=== PATIENT | male | born 1955 | race Caucasian/White ===

== ENCOUNTER 2024-01-26 15:36 | Inpatient (IN) | payer MEDICARE, SELFPAY ==
[2024-01-26] VITALS (7 sets, daily range): BP systolic 102–160; BP diastolic 71–92; BMI 30.4; BMI 30.3
--- NOTE | 2024-01-26 13:17 | ED.GENMED ---
History of Present Illness
General
Chief Complaint: Breathing Problem
Time Seen by Provider: 01/26/24 13:02
History of Present Illness
History of Present Illness:
68-year-old male with history of COPD on chronic supplemental oxygen, mesothelioma, restrictive lung disease, and bul-xquxafy-pibjkcxkn diabetes presents to the emergency department for evaluation of increasing shortness of breath. He states to me
this has been gradually worsening over the past 6 months, presented to his product consultant today where he was noted to be profoundly hypoxic on his normal supplemental oxygen and EMS was called. On arrival the patient is requiring 15 L nonrebreather
to maintain saturations greater than 95%. He denies chest pain. States that the last time he had similar symptoms he required thoracentesis for pleural effusion on the left. Denies any fevers or chills. Does report increased leg swelling in the
legs recently. Denies any known weight gain.
Past History
Social History
Tobacco: 2nd hand smoke exposure
Alcohol: None
Drug: None
Living: with family
Review of Systems
Review of Systems
Allergies reviewed?: Yes
All Other Systems: ROS reviewed and negative except as documented in HPI and ROS
Phy Exam
Physical Exam
Physical Exam:
GEN: Chronically ill-appearing, in acute respiratory distress
Eyes: PERRLA, EOMs intact, no scleral icterus
HENT: NCAT, oral mucosa moist
Lungs: Tachypnea, grossly diminished lung sounds particularly in the bases
Cardiac: RRR, no M/R/G, 2+ pitting edema bilateral lower extremities; radial pulses 2+ bilat
Neuro: AO x 3
MSK: No gross deformity or ecchymosis. No edema. No digital clubbing
Skin: No rashes, petechiae. Normal color, no pallor or jaundice.
Psych: Calm, cooperative, proper hygiene
Scores
Heart Failure Risk
Heart Failure Risk Score: Not Applicable
Course
Orders/Labs/Results
Orders:
Orders
01/26/24 13:02
EKG [Electrocardiogram (*1)] Urgent
Reason for Study: Shortness of Breath
01/26/24 13:03
EKG- Treatment ONCE
EKG- Treatment ONCE
CR Chest Portable - 1 View Urgent
Comment:
Reason For Exam: sob
Reason Study Needs to be Portable: Unable to Transport
01/26/24 13:07
Complete Blood Count/With Diff Urgent
Comprehensive Metabolic Panel Urgent
NT-proBNP Urgent
PTT Urgent
Prothrombin Time Urgent
Troponin I Urgent
01/26/24 14:18
Venous Blood Gas Urgent
%Oxygen/Room Air: 10
Comment: mid flow
01/26/24 14:29
Furosemide [Lasix] 40 mg IV NOW STA
01/26/24 15:03
Admit/Transfer Patient As Directed
Co-Sign Provider:
Level of Care: Inpatient admission
Assign to:: IMU- Intermediate Care
Physician / Group: Robinson Corbett
Diagnosis: suspected HF, hypoxic resp failure
Reason for Hospitalization: suspected HF, hypoxic resp failure
Expected length of stay greater than two midnights?: Yes
ELOS- Estimated Length of Stay in days: 3
I certify the patient meets the requirements for IP care: Yes
01/26/24 15:05
Code Status As Directed
Resuscitation Status: Full Code
01/26/24 16:29
Acetaminophen [Tylenol] 650 mg PO Q4HPRN PRN
Ipratropium/Albuterol Sulfate [Duoneb] 3 ml INH R Q4HPRN PRN
Methylphenidate HCl [Ritalin] 15 mg PO BIDPRN PRN
Ondansetron Injectable [Zofran] 4 mg IV Q6HPRN PRN
Oxycodone [Roxicodone] 5 mg PO Q8HPRN PRN
01/26/24 16:29
Echo 2D MMode Color/Doppler Routine
Reason for Study: HF
CT Chest W/o Iv Contrast Routine
Comment:
Reason For Exam: mesothelioma, hypoxia
PULMONARY CONSULT Routine
Consulting Provider: Ovidio Marrero
Was physician already notified: Yes
Reason for consult: mesothelioma, hypoxic resp failure
Activity As Directed
Activity Level: With Assistance
Vital Signs As Directed
Frequency: Per unit guidelines
O2 Therapy [RESP] Routine
Titrate/Wean O2 to maintain O2 sat greater than (%): 88
DX Deep Vein Thrombosis Video Routine
01/26/24 17:42
Troponin I Q6H
01/26/24 20:00
Carvedilol [Coreg] 12.5 mg PO BID
Heparin 5,000 units SC Q12
Pregabalin [Lyrica] 50 mg PO BID
01/27/24 01:00
Troponin I Q6H
01/27/24 06:00
Basic Metabolic Panel IN AM
Complete Blood Count/No Diff IN AM
01/27/24 08:00
Atorvastatin [Lipitor] 80 mg PO DAILY
Budesonide/Formoterol 80/4.5 [Symbicort 80/4.5 Mcg Inhaler] 2 puff INH R BID
Fenofibrate 145 [Tricor] 145 mg PO DAILY
Finasteride [Proscar] 5 mg PO DAILY
Furosemide [Lasix] 40 mg IV DAILY
Losartan [Cozaar] 100 mg PO DAILY
Tamsulosin [Flomax] 0.8 mg PO DAILY
01/28/24 06:00
Basic Metabolic Panel IN AM
Complete Blood Count/No Diff IN AM
01/29/24 06:00
Basic Metabolic Panel IN AM
Complete Blood Count/No Diff IN AM
Abnormal Lab Results
01/26/24 01/26/24
13:07 14:18
RBC 3.35 L 10^6/uL
(4.70-6.10)
Hgb 10.0 L g/dL
(13.0-18.0)
Hct 31.5 L %
(39.0-52.0)
MCHC 31.7 L g/dL
(33.0-37.0)
RDW 20.3 H %
(11.5-14.5)
Abs Immat Gran (auto) 0.1 H 10^3/uL
(0-0.05)
Absolute Lymphs (auto) 0.6 L 10^3/uL
(1.2-3.4)
Immature Gran % 1.0 H %
(0-0.5)
Lymphocytes % 11.2 L %
(20.5-51.1)
Monocytes % 12.1 H %
(1.7-9.3)
PT 14.9 H Sec
(11.4-14.6)
VBG pCO2 60 H mmHg
(35-48)
VBG HCO3 31.6 H mmol/L
(22-27)
Chloride 108 H mmol/L
(98-107)
BUN 24 H mg/dl
(9-20)
Creatinine 1.4 H mg/dL
(0.7-1.3)
Glucose 112 H mg/dl
(70-99)
Troponin I 0.082 H* ng/ml
Albumin 3.3 L g/dl
(3.5-5.0)
01/26/24 13:07
01/26/24 13:07
Vital Signs
Initial and Last Documented VS:
Initial Vital Signs
Temp Pulse Resp BP Pulse Ox
97.6 F 80 27 154/90 100
01/26/24 13:08 01/26/24 13:08 01/26/24 13:08 01/26/24 13:08 01/26/24 13:08
Last Documented Vital Signs
Temp Pulse Resp BP Pulse Ox
98.3 F 85 19 129/73 100
01/26/24 20:50 01/26/24 20:30 01/26/24 20:30 01/26/24 17:00 01/26/24 20:30
MDM/Problems Addressed
MDM/Problems Addressed:
68-year-old male presents with acute respiratory failure. He does have chronic underlying COPD requiring supplemental oxygen however is requiring upwards of 15 L nonrebreather to maintain saturations in the emergency department. Clinically appears
volume overloaded with lower extremity edema and diminished bibasilar breath sounds. Chest x-ray independently interpreted by me reveals bilateral pulmonary edema with a likely loculated right pleural effusion. Patient was maintained on mid flow
nasal cannula with good saturation results. Given the chronicity of his complaint coupled with lack of fever, or leukocytosis do not feel there is any indication for antibiotics at this time. Will admit to the hospitalist service for further
management of suspected acute CHF
*Critical Care Note
Total Time (30-74mins, 75-104mins- exclusive of procedures): 50-minute
comment:
Critical care time: 50 minutes
Critical care time was exclusive of: Separately billable procedures, treating other patients, and teaching time
Critical care was necessary to treat or prevent imminent or life-threatening deterioration of the following conditions: Acute respiratory failure with hypoxia
Critical care time spent personally by me on the following activities:
[x] Review of old charts
[x] Obtaining history from patient or surrogate
[x] Ordering and review of the laboratory studies
[x] Ordering and review of radiographic studies
[x] Ordering and performing treatments and interventions
[x] Patient patient's response to treatment
[x] Development of treatment plan with patient or surrogate
ED Attending Note
-
Portions of this chart may have been created with voice recognition software.� Occasional wrong word or��sound alike� substitutions may have occurred due to the inherent limitations of voice recognition software.
Discharge Plan
Departure
Patient Disposition: Admit
Date of Disposition: 01/26/24
Time of Disposition: 14:29
Admit to: Telemetry
Presentation/result/management discussed w/ accepting MD/DO: Hospitalist
Discharge Problem:
Acute heart failure with preserved ejection fraction (HFpEF), Acute hypoxic respiratory failure
Interventions
Interventions:
*Risk Screen - Suicide Last Done: 01/26/24 13:08
*General Assessment Last Done: 01/26/24 13:08
*Neglect/Abuse Screening Last Done: 01/26/24 13:08
ED- Fall Risk Assessment Last Done: 01/26/24 13:08
*ED COVID-19 Vaccine History Last Done: 01/26/24 13:08
*Nursing Disposition Last Done: 01/26/24 19:14
ED- Cardiac Assessment Last Done: 01/26/24 13:08
ED- Pulmonary Assessment Last Done: 01/26/24 14:12
Discharge Date and Time
Discharge Date/Time: 01/26/24 20:36
[2024-01-26 13:25] LABS: % Basophils 0.4 % (0-2); % Eosinophils 0.4 % (0-6); % Lymphocytes 11.2 % (20.5-51.1); % Monocytes 12.1 % (1.7-9.3); % Neutrophils 74.9 % (42.2-75.2); Absolute Immature Granulocytes 0.1 10^3/uL (0-0.05); Absolute Lymphocytes 0.6 10^3/uL (1.2-3.4); Absolute Monocytes 0.6 10^3/uL (0.1-0.6); Absolute Neutrophils 3.8 10^3/uL (1.4-6.5); Hematocrit 31.5 % (39.0-52.0); Mean Corp Hgb Conc. 31.7 g/dL (33.0-37.0); Mean Corpuscular Hgb 29.9 pg (27.0-31.0); Nucleated Red Blood Cells % 0 % (-); Platelet Count 333 10^3/uL (130-400); Red Blood Cell Count 3.35 10^6/uL (4.70-6.10); Red Cell Dist. Width 20.3 % (11.5-14.5); White Blood Cell Count 5.1 10^3/uL (4.8-10.8)
--- NOTE | 2024-01-26 13:25 | EDRN ---
respiratory contacted to perform ABG per providers orders
[2024-01-26 13:35] LABS: INR 1.17; PT 14.9 Sec (11.4-14.6)
[2024-01-26 13:36] LABS: APTT 33.4 Sec (23.4-35.0)
[2024-01-26 13:40] LABS: ALT (SGPT) 15 U/L (0-50); AST (SGOT) 37 U/L (17-59); Albumin 3.3 g/dl (3.5-5.0); Alkaline Phosphatase 77 U/L (38-126); Blood Urea Nitrogen 24 mg/dl (9-20); Carbon Dioxide 30 mmol/L (22-30); Chloride 108 mmol/L (98-107); Estimated Creatinine Clearance 54 ml/min; Glucose 112 mg/dl (70-99); Potassium 4.1 mmol/L (3.5-5.1); Sodium 140 mmol/L (135-145); Total Bilirubin 0.3 mg/dl (0.2-1.3); Total Protein 7.4 g/dl (6.3-8.2); eGFR 54.41
--- NOTE | 2024-01-26 13:44 | EDRN ---
the pt is resting in stretcher in the lowest position, side rails up x2, call poon within reach, HOB elevated, NST in the 80's, last BP 154/90 (110), the pt is currently still on 15L non rebreather Sp02 100%, RR 18, no c/o pain, no c/o chest pain,
the pt has no c/o SOB currently, the registrar called this RN and asked this RN if family could come back to the pts room, the pts family is currently at the pts bedside, awaiting for respiratory to come to the pts bedside to obtain ABG, will
continue to monitor the pt closely
--- NOTE | 2024-01-26 14:04 | EDRN ---
respiratory at the pts bedside obtaining ABG
[2024-01-26 14:08] LABS: NT-proBNP 1710 pg/ml; Troponin I 0.082 ng/ml
--- NOTE | 2024-01-26 14:10 | EDRN ---
troponin came back elevated, this RN notified Gil REYES
--- NOTE | 2024-01-26 14:11 | EDRN ---
per provider respiratory at the pts bedside placing the pt on midflow
--- NOTE | 2024-01-26 14:21 | EDRN ---
the pt was placed on 10L Midflow, the pts sp02 has remained 95-98%, VBG obtained due to respiratory not being able to obtain ABG
[2024-01-26 14:26] LABS: Venous Blood Gas B.E. 4.6 mmol/L (-4 to +4); Venous Blood Gas HCO3 31.6 mmol/L (22-27); Venous Blood Gas O2 Sat % 77.1 %; Venous Blood Gas pCO2 60 mmHg (35-48); Venous Blood Gas pH 7.33 (7.32-7.43); Venous Blood Gas pO2 50 mmHg (30-50)
[2024-01-26] MEDS: LASIX 40 MG IV (14:32)
--- NOTE | 2024-01-26 14:45 | EDRN ---
the pt is currently still on 10L Midflow and Sp02 is currently 99%, no c/o SOB, no c/o chest pain, VS WNL, will continue to monitor the pt closely
--- NOTE | 2024-01-26 15:15 | HPS.HSE ---
Family Physician
-
Family Physician: Omar Banks
Chief Complaint
-
shortness breath
History of Present Illness
Patient is 68-year-old male with past medical history of mesothelioma on chemotherapy at [facility], history of CKD stage IIIa, unz-fawrsly-xabsekmrl diabetes mellitus, COPD, former tobacco use, history of pneumothorax, restrictive lung disease,
hyperlipidemia, obesity came to ER for having worsening shortness of breath for last 6 months. Patient have diagnosis of mesothelioma and has been undergoing chemotherapy, last known was 6 weeks back and was due for next round this week.
Unfortunately with ongoing pulmonary symptoms patient had to come to ER.
In ER patient was noted to be hypoxic requiring up to 14-15 L oxygen through mid flow. Patient does use oxygen at baseline and 3 L.
Patient have noticed worsening lower extremity edema and weight gain. No orthopnea. At this point patient having minimal activity causing shortness of breath denies of having any cough or fever episodes
Patient denies of having any other ongoing problems of chest pain/palpitation/dizziness/abdominal pain/nausea/vomiting/diarrhea.
Medical History
Past Medical History
Past Medical History: Reports Other
Additional Past Medical History:
history of mesothelioma on chemotherapy at [facility], history of CKD stage IIIa, tvh-kdxlhwx-pfeteuujv diabetes mellitus, COPD, former tobacco use, history of pneumothorax, restrictive lung disease, hyperlipidemia, obesity
Past Surgical History: Reports Other
Social History
Tobacco: Former Smoker
Alcohol: None
Drug: None
Personal:
Family History
Family History: Not pertinent
Allergies / Home Medications
Allergies reflects when Allergies were last updated in [facility].
Home Medications with original date entered in [facility]
Allergy/Medication List:
Allergies
Allergy/AdvReac Type Severity Reaction Status Date / Time
No Known Allergies Allergy Verified 04/05/23 10:34
Home Medications
atorvastatin 80 mg tablet 80 mg PO DAILY High cholesterol 02/12/20
dapagliflozin propanediol 10 mg tablet (Farxiga) 10 mg PO DAILY Diabetes 05/05/22
fenofibric acid (choline) 135 mg capsule,delayed release 135 mg PO DAILY High cholesterol 05/05/22
finasteride 5 mg tablet 5 mg PO DAILY Urinary issue 05/05/22
tamsulosin 0.4 mg capsule 0.8 mg PO DAILY Urinary issue 05/05/22
albuterol sulfate 90 mcg/actuation aerosol inhaler 2 puff inhalation R Q6HPRN PRN sob 04/05/23
methylphenidate HCl 10 mg tablet 15 mg PO BIDPRN PRN adhd 04/05/23
rsvbcmd-luwttzsgqfglq-btrdjbfd 250 mg-250 mg-65 mg tablet (Excedrin Extra Strength) 1 tab PO DAILYPRN PRN headaches 01/26/24
carvedilol 12.5 mg tablet (Coreg) 12.5 mg PO BID 01/26/24
fluticasone fur. 100 mcg-umeclid 62.5 mcg-vilant 25 mcg inhalat.powder (Trelegy Ellipta) 1 inh inhalation R DAILY 01/26/24
losartan 100 mg tablet 100 mg PO DAILY 01/26/24
naproxen sodium 220 mg tablet (Aleve) 220 mg PO BIDPRN PRN mild pain 01/26/24
oxycodone 5 mg tablet 5 mg PO BIDPRN PRN severe pain 01/26/24
pregabalin 50 mg capsule (Lyrica) 50 mg PO BID 01/26/24
Review of Systems
-
A 12 point ROS was completed and negative except as noted: Yes
Physical Exam
Vital Signs
Vital Signs
Temp Pulse Resp BP Pulse Ox
97.6 F 89 20 145/84 99
01/26/24 13:08 01/26/24 14:32 01/26/24 14:30 01/26/24 14:32 01/26/24 14:30
Physical Exam
General: No Apparent Distress and Obese
HEENT: Atraumatic and Oxygen
Respiratory: Rhonchi; No Wheezes
Cardiac: S1/S2 and Regular Rhythm; No Murmur or Rub
GI: Soft, Non Tender and Non Distended
Rectal: Deferred by Provider
Musculoskeletal: No Cyanosis and No Edema
Skin: Rash
Neuro: Awake, Alert, Oriented and Nonfocal/grossly intact
Psych: Calm
Laboratory Results
-
01/26/24 13:07
01/26/24 13:07
Laboratory Results
PT 14.9 Sec (11.4-14.6) H 01/26/24 13:07
INR 1.17 01/26/24 13:07
APTT 33.4 Sec (23.4-35.0) 01/26/24 13:07
pH Cancelled 01/26/24 14:06
pCO2 Cancelled 01/26/24 14:06
pO2 Cancelled 01/26/24 14:06
HCO3 Cancelled 01/26/24 14:06
Total Bilirubin 0.3 mg/dl (0.2-1.3) 01/26/24 13:07
AST 37 U/L (17-59) 01/26/24 13:07
ALT 15 U/L (0-50) 01/26/24 13:07
Alkaline Phosphatase 77 U/L (38-126) 01/26/24 13:07
Troponin I 0.082 ng/ml H* 01/26/24 13:07
Data Reviewed
-
Lab Data: Labs Reviewed by me, Discussed with Patient and Discussed with Family
Impression/Plan
-
1. Acute on chronic hypoxic resp failure
Suspected new HF
-Patient comes in with progressive shortness of breath, slowly worsening over 6 months per patient
-CXR showing moderate CHF. Moderate right pleural effusion.
-Chest x-ray also showing bilateral infiltrates and question of superimposed pneumonia, although patient does not have any cough/fever. Monitor off of antibiotics
-ProBNP elevated 1700. in April 13 was 500, suspecting component of new heart failure. Echocardiogram ordered
-Patient got IV Lasix 40 mg today, maintain on 40 mg daily moving forward
2. Right mod pleural effusion
-Chest x-ray questioning moderate right-sided pleural effusion.
-With underlying mesothelioma unable to differentiate. CT chest w/o contrast ordered.
-Pulmonology asked to follow along as well
3. Troponin elevation
-minimal with hypoxia, f/u ordered
-EKG did not show any ST/T seg changes
4. Mesothelioma
- f/u with [facility] oncology. due for next round chemo today per family
5. CKDIIIA
- cr close to baseline. monitor post Lasix.
Normocytic anemia
hoo-zqwvubv-wtibqkbbn diabetes mellitus
COPD
former tobacco use
history of pneumothorax
restrictive lung disease
hyperlipidemia
obesity
DVT PPX - heparin subq
Full code -confirmed with patient
Total time spent : 78 mins
I personally saw and examined the patient.
I have reviewed all diagnostic interpretations and treatment plans as written.
Time includes patient management by me, time spent at the patients bedside, time to review lab and imaging results, discussing patient care, documentation in the medical record, and time spent with the family or caregiver and discussing care plan
with RN/Consultants.
--- NOTE | 2024-01-26 16:09 | EDRN ---
the pt is resting in stretcher in the lowest position, side rails up x1, call poon within reach, HOB elevated, NSR in the 80's, last BP 102/71 (82), the pt is currently still on 10L Midflow and Sp02 99%, no c/o chest pain, no c/o SOB, will continue
to monitor the pt closely
--- NOTE | 2024-01-26 16:29 | EDRN ---
this RN processed orders, pharmacy called and notified
--- NOTE | 2024-01-26 16:33 | EDRN ---
the pt pressed the call poon and this RN entered the pts room, the pt stated to this RN that he was hungry, this RN processed diet order and this RN provided the pt with a menu
--- NOTE | 2024-01-26 16:35 | EDRN ---
the pt has been able to stand at the side of the bed to urinate in urinal without issues with this RN present
[2024-01-26 17:40] LABS: Glucose - Point of Care 105 mg/dl (70-99)
--- NOTE | 2024-01-26 17:41 | EDRN ---
this RN entered the pts room and noticed that the pt had a soda and milk shake that his brought him, this RN checked the pts blood sugar and the blood sugar was 105, glucometer cleaned per hospital protocol, the pt did not get insulin due to
protocol, the pt stated to this RN, 'I don't check my sugars like that and i don't take insulin at home or oral diabetic medication anymore, can you tell the doctor that', this RN notified provider, the pt is resting in stretcher in the lowest
position, side rails up x2, call poon within reach, HOB elevated, NSR in the 90's, the pt is currently still on 10L Midflow and Sp02 97%, no c/o chest pain, no c/o SOB, will continue to monitor the pt closely
--- NOTE | 2024-01-26 18:00 | EDRN ---
this RN assisted the pt with standing at the side of the bed to urinate and this RN noticed that the pt had redness on the left buttock and a decub on the right buttock, when asked about it the pt stated that he has had it for a while, this RN will
notify provider
[2024-01-26 18:17] LABS: Troponin I 0.107 ng/ml
--- NOTE | 2024-01-26 18:27 | EDRN ---
second troponin came back elevated, this RN notified provider
[2024-01-26] MEDS: LYRICA 50 MG PO (21:26)
[2024-01-26] MEDS: HEPARIN 5000 UNITS SC (21:27)
[2024-01-26] MEDS: COREG 12.5 MG PO (21:27)
[2024-01-26 21:41] LABS: Glucose - Point of Care 184 mg/dl (70-99)
[2024-01-26] MEDS: DUONEB 3 ML INH (23:03)
--- NOTE | 2024-01-26 23:12 | PTCARENOTE ---
Pt admitted around 2044. Family at bedside. pt aaox3, but seems forgetful & confused at times. SR on monitor, remains on 10LMF. able to stand and pivot. Reports he was using a WC at home d/t weakness & SOB. Stage 3 on his R buttocks, cleaned &
dressing applied. Pt c/o right pleural pain, oxy given. pt up in chair to help relieve the pain, stated its the same pain he endures at home& oxy does help. BEd & chair alarm on. call poon in reach. will monitor.
[2024-01-26] MEDS: ROXICODONE 5 MG PO (23:17)
--- NOTE | 2024-01-26 23:41 | PTCARENOTE ---
Patients daughter, Echo, expressed how she is worried about her father and his living conditions. States he is very forgetful & is worried he is not taking his medications the way he is supposed to, if not at all. She stated she does not know
what to do about it. Patient lives with his which is the daughters step mom. This nurse provided comfort to the daughter and stated that case management will be around tomorrow and they can discuss this further. Added daughter to emergency
contacts.
Daughter Echo [phone]
[2024-01-27] VITALS (19 sets, daily range): BP systolic 95–144; BP diastolic 49–86; BMI 30.1
[2024-01-27] MEDS: MORPHINE SULFATE 1 MG IV ×2 (00:46→23:50)
[2024-01-27 01:35] LABS: Troponin I 0.081 ng/ml
[2024-01-27 05:40] LABS: Hematocrit 30.5 % (39.0-52.0); Hemoglobin 9.5 g/dL (13.0-18.0); Mean Corp Hgb Conc. 31.1 g/dL (33.0-37.0); Mean Corpuscular Hgb 29.3 pg (27.0-31.0); Mean Corpuscular Volume 94.1 fL (80.0-94.0); Mean Platelet Volume 10.1 fL (7.4-10.4); Platelet Count 308 10^3/uL (130-400); Red Blood Cell Count 3.24 10^6/uL (4.70-6.10); Red Cell Dist. Width 19.9 % (11.5-14.5); White Blood Cell Count 4.9 10^3/uL (4.8-10.8)
[2024-01-27 06:04] LABS: Blood Urea Nitrogen 26 mg/dl (9-20); Calcium 9.1 mg/dl (8.4-10.2); Carbon Dioxide 35 mmol/L (22-30); Chloride 102 mmol/L (98-107); Estimated Creatinine Clearance 54 ml/min; Glucose 114 mg/dl (70-99); Potassium 4.4 mmol/L (3.5-5.1); Sodium 142 mmol/L (135-145); eGFR 54.41
[2024-01-27] MEDS: SPIRIVA RESPIMAT 2.5 MCG 2 PUFF INH (07:29)
[2024-01-27] MEDS: SYMBICORT 80/4.5 MCG INHALER 2 PUFF INH ×2 (07:29→19:50)
[2024-01-27 07:34] LABS: Glucose - Point of Care 91 mg/dl (70-99)
[2024-01-27] MEDS: COZAAR 100 MG PO (07:44)
[2024-01-27] MEDS: FLOMAX 0.800000000000000044 MG PO (07:44)
[2024-01-27] MEDS: COREG 12.5 MG PO ×2 (07:44→20:01)
[2024-01-27] MEDS: HEPARIN 5000 UNITS SC ×2 (07:45→20:03)
[2024-01-27] MEDS: PROSCAR 5 MG PO (07:47)
[2024-01-27] MEDS: LASIX 40 MG IV (07:47)
[2024-01-27] MEDS: LIPITOR 80 MG PO (07:47)
[2024-01-27] MEDS: LYRICA 50 MG PO ×2 (07:47→20:02)
[2024-01-27] MEDS: TRICOR 145 MG PO (07:48)
--- NOTE | 2024-01-27 08:32 | W.PN.HOSP.TC ---
Addendum entered and electronically signed by Robinson Corbett MD 01/27/24 14:51:
CT chest from Dec 15 reviewed through [facility] - left side effusion is new. right lower lobe fissural fluid collection increased as well in my opinion. Diffuse multiple nodules of possible lymphangitic spread looks similar to November scan.
RLL parenchymal changes on our CT scan - covering with empiric zosyn/doxycycline.
Check covid/flu/legionella/strep antigen and procal (not significantly helpful if elevated with cancer )
Briefly discussed goals of care with patient spouse as if not improved with medical management hospice care required. Patient spouse understands this.
Original Note:
Today's Communication/Plan
-
continue diuretics
wean off o2 as possible
Assessment / Plan
Assessment / Plan
CT chest
Innumerable scattered bilateral pulmonary nodules majority of which measure up to 1 cm as well as new nodular opacities in the lungs bilaterally, latter of which may be at least in part be fissurally associated. Prominence of the pulmonary
interstitium, new small bilateral pleural effusions, small mediastinal lymph nodes and possible small retrocrural lymph node. In light of the clinical history, findings must be at least deemed suspicious for malignancy including possible
lymphangitic spread of tumor.
Depression of dense consolidation in the anterior right lower lung/right middle lobe.
Tiny prominent size right axillary lymph node.
Coronary artery calcifications.

1. Acute on chronic hypoxic respiratory failure
� � Suspected new HF
-Patient comes in with progressive shortness of breath, slowly worsening over 6 months per patient
-CXR showing moderate CHF. Moderate right pleural effusion.
-Chest x-ray also showing bilateral infiltrates and question of superimposed pneumonia, although patient does not have any cough/fever.� Monitor off of antibiotics
-ProBNP elevated 1700. in April 13 was 500, suspecting component of new heart failure.� Echocardiogram ordered
-Patient got IV Lasix 40 mg today, maintain on 40 mg daily moving forward
-CT chest report as above. Discussed with pulmonology as well.
2. Right mod pleural effusion - ruled out
-Chest x-ray questioning moderate right-sided pleural effusion.
-CT chest w/o contrast did not show right effusion.
3. Troponin elevation
-minimal with hypoxia,
-Trop max of 0.1 , trending down
-EKG did not show any ST/T seg changes
4. Mesothelioma
- f/u with [facility] oncology. due for next round chemo today per family
5. CKDIIIA
- cr close to baseline. monitor post Lasix.
Normocytic anemia
ghs-qketdaw-igvocnimu diabetes mellitus
COPD
former tobacco use
history of pneumothorax
restrictive lung disease
hyperlipidemia
obesity
DVT PPX - heparin subq
Full code -confirmed with patient
Case discussed with radio time sales supervisor
Total time spent : 53 mins
I personally saw and examined the patient.
I have reviewed all diagnostic interpretations and treatment plans as written.
Time includes patient management by me, time spent at the patients bedside, time to review lab and imaging results, discussing patient care, documentation in the medical record, and time spent with the family or caregiver and discussing care plan
with RN/Consultants.
Anticipated Discharge: > 48 hours
Subjective/Interval History
-
Date of Service: January 27, 2024
Denies having significant dyspnea
Remains on 10 L oxygen through mid flow
Afebrile overnight
Objective Data
-
Labs:
Laboratory Results
01/27/24
05:22
WBC 4.9
Hgb 9.5 L
Hct 30.5 L
Plt Count 308
Sodium 142
Potassium 4.4
Chloride 102
Carbon Dioxide 35 H
BUN 26 H
Creatinine 1.4 H
Glucose 114 H
Calcium 9.1
Vital Signs:
Vital Signs
Temp Pulse Resp BP Pulse Ox
98.5 F 84 18 133/85 98
01/27/24 07:19 01/27/24 07:47 01/27/24 07:32 01/27/24 07:47 01/27/24 07:32
I&O
01/26/24 01/27/24 01/28/24
06:59 06:59 06:59
Output Total 1150 / 1150
Balance -1150 / -1150
Review of Systems
-
Respiratory: Reports Cough; Denies Trouble Breathing or Wheezing
Cardiac: Reports No Symptoms
Abdomen/GI: Reports No Symptoms
Physical Exam
-
General: No Apparent Distress
HEENT: PERRLA
Respiratory: Clear to Auscultation and Other (oxygen 10L/m); Negative Wheezes
Cardiac: Regular Rhythm and S1/S2; Negative Murmur
GI: Soft, Nontender and Nondistended
Musculoskeletal: Other (resolved swelling b/l LE )
Skin: Negative Rash
Neuro: Awake, Alert and AO x 3
Psych: Calm
[2024-01-27 08:54] LABS: Glycohemoglobin (HgbA1c) 6.3 % (4.0-5.6)
--- NOTE | 2024-01-27 09:53 | CON.PUL ---
Consultation
Consultation Request
Date/Time Consultation Requested: 01/27/2024-7:30 AM
Date/Time Consultation Performed: 01/27/2024-8 AM
Requesting Provider: Hospitalist
Performing Provider: Dr. Marrero
Reason for Consultation: Shortness of breath
Medical History
-
Chief Complaint: Shortness of breath
History of Present Illness:
68-year-old male with a history of mesothelioma undergoing chemotherapy at [facility] as well as chronic kidney disease, diabetes, COPD presented with increasing shortness of breath over the last 6 months-pulmonary was consulted for shortness of breath
01/27/2024. Patient was seen in the pulmonary office 01/26/2024 and with significant shortness of breath was told to go to emergency room. Patient states that he had progressive shortness of breath. He does not complain of chest congestion, fevers,
chills, night sweats, pleurisy, abdominal pain, nausea and does admit to some leg swelling.
Past Medical History
Past Medical History: None (Fatty liver. Obesity. Hyperlipidemia. Diabetes. Mesothelioma diagnosed 2021-enrolled study [facility] immunotherapy and chemotherapy. COPD. Former bdbhwp-21-wvwx-year. GERD. Restrictive lung disease. Peripheral
eosinophilia. BOOGIE suspected. Spontaneous pneumothorax.)
Past Surgical History: None (Hernia repair. Carpal tunnel 2018. Cataract 2014. Pleural lung biopsy. Renal stone removal 2021.)
Social History
Tobacco: Former Smoker ([id number])
Alcohol: None
Drug: None
Personal:
Living: With Family
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
Occupational Exposures: Suspected asbestos exposure
Environmental Exposures: No known tuberculosis exposure
Family History
Family History: Other (Ybghgy-wexakp-kzjn cancer)
Allergies / Home Medications
Allergies
Allergy/AdvReac Type Severity Reaction Status Date / Time
No Known Allergies Allergy Verified 04/05/23 10:34
Home Medications
Medication Instructions Recorded Confirmed Last Taken Type
atorvastatin 80 mg tablet 80 mg PO DAILY High cholesterol 02/12/20 01/26/24 01/26/24 History
dapagliflozin propanediol 10 mg 10 mg PO DAILY Diabetes 05/05/22 01/26/24 01/26/24 History
tablet (Farxiga)
fenofibric acid (choline) 135 mg 135 mg PO DAILY High cholesterol 05/05/22 01/26/24 01/26/24 History
capsule,delayed release
finasteride 5 mg tablet 5 mg PO DAILY Urinary issue 05/05/22 01/26/24 01/26/24 History
tamsulosin 0.4 mg capsule 0.8 mg PO DAILY Urinary issue 05/05/22 01/26/24 01/26/24 History
albuterol sulfate 90 mcg/actuation 2 puff inhalation R Q6HPRN PRN sob 04/05/23 01/26/24 Unknown History
aerosol inhaler
methylphenidate HCl 10 mg tablet 15 mg PO BIDPRN PRN adhd 04/05/23 01/26/24 04/02/23 History
bqafeet-ionellujqszuw-aejxoycb 250 1 tab PO DAILYPRN PRN headaches 01/26/24 01/26/24 Unknown History
mg-250 mg-65 mg tablet (Excedrin
Extra Strength)
carvedilol 12.5 mg tablet (Coreg) 12.5 mg PO BID 01/26/24 01/26/24 01/26/24 History
fluticasone fur. 100 mcg-umeclid 1 inh inhalation R DAILY 01/26/24 01/26/24 01/26/24 History
62.5 mcg-vilant 25 mcg
inhalat.powder (Trelegy Ellipta)
losartan 100 mg tablet 100 mg PO DAILY 01/26/24 01/26/24 01/26/24 History
naproxen sodium 220 mg tablet 220 mg PO BIDPRN PRN mild pain 01/26/24 01/26/24 Unknown History
(Aleve)
oxycodone 5 mg tablet 5 mg PO BIDPRN PRN severe pain 01/26/24 01/26/24 Unknown History
pregabalin 50 mg capsule (Lyrica) 50 mg PO BID 01/26/24 01/26/24 01/26/24 History
Review of Systems
-
Unable to Obtain full review of systems at this time due to: Other (Per HPI)
Vitals / Labs / Diagnostic Testing
Vital Signs
Temp Pulse Resp BP Pulse Ox
98.5 F 78 21 131/82 97
01/27/24 07:19 01/27/24 08:00 01/27/24 08:00 01/27/24 08:00 01/27/24 09:01
Lab Data
01/27/24 05:22
01/27/24 05:22
Laboratory Results
01/26/24 01/26/24
13:07 14:06
PT 14.9 H
INR 1.17
APTT 33.4
pH Cancelled
pCO2 Cancelled
pO2 Cancelled
HCO3 Cancelled
O2 Delivery Level Cancelled
Diagnostic Testing:
Physical Exam
-
Exam:
Well-nourished and well-developed in no apparent distress
HEENT-atraumatic, normocephalic
Neck-supple, no JVD, no bruit
Heart-regular rate and rhythm-no murmurs, rubs or gallops
Diminished breath sounds right base proximally half-way up, no wheezes, rare crackles
Back without tenderness
Abdomen-soft, nontender, nondistended, no hepatosplenomegaly
Extremities-no cyanosis, clubbing, positive lower extremity edema
Integument-intact, no rashes, lesions or ecchymosis
Neurology-alert and oriented, nonfocal motor and sensory exam
Assessment
-
68-year-old male with a history of mesothelioma undergoing chemotherapy at [facility] as well as chronic kidney disease, diabetes, COPD presented with increasing shortness of breath over the last 6 months-pulmonary was consulted for shortness of breath
01/27/2024.
Assessment
Shortness of ctgitc-uyoedtlngncgpj-lckhbghbfgc lung disease, pleural effusion, pleural thickening, interstitial process
Heart failure-unknown type
Pleural effusion-left greater than right
Troponin elevation
Bibwto-zqvxraedwl-xlmsrtppxj 9.5
Hyperglycemia
Conditions present prior to admission:
Fatty liver.
Obesity.
Hyperlipidemia.
Diabetes.
Mesothelioma diagnosed 2021-enrolled study [facility] immunotherapy and chemotherapy.
COPD.
Former ctxczs-26-yfzb-year.
GERD.
Restrictive lung disease.
Peripheral eosinophilia.
BOOGIE suspected-polysomnogram recommended-never followed through
Spontaneous pneumothorax.
Hernia repair.
Carpal tunnel 2017.
Cataract 2014.
Pleural lung biopsy.
Renal stone removal 2021.
Family history of lung zaanqz-qqjssz-rdrrln
Plan
Respiratory decompensation has occurred slowly over the weeks and months with markedly abnormal CT chest suggesting possible lymphangitic spread
Supplemental oxygen
Attempt diuresis
Monitor renal function, electrolytes, intake/output, lower extremity edema and weight
Replace electrolytes as needed
Follow radiographically
Aspiration precautions
Symbicort and Spiriva continue
Nebulizers as needed
Mucolytic's as needed
Trend troponin
Last echocardiogram summarized below
Review of CT suggests unlikely significant fluid for thoracentesis-Possibly on the left side.
Shortness of breath does not improve with diuresis tehn we'll consider IR/thora on the left side if enough fluid
Follow hemoglobin
Transfuse as needed
Monitor blood sugar
Insulin supplementation as needed
DVT prophylaxis-on subcu heparin
Nutrition
Early mobilization
Outpatient follow-up at [facility]
Last seen in Dr. Fatuma Barker 01/26/20241666-xhxcsm-kv again as an outpatient for local pulmonary care
Diagnostic data:
Chest x-ray 05/12-no pneumothorax following right-sided thoracentesis, small to moderate residual right pleural effusion
Chest x-ray 01/26/2024-moderate CHF, moderate right pleural effusion
CT chest 07/24/2021-no evidence for pulmonary embolism, nodularity right pleural base suggesting metastatic disease which is stable, mild right hilar lymphadenopathy, moderate right pleural effusion and emphysematous changes
CT chest PE study at [facility] 12/01/2023: No PE. Small mildly complex pleural effusion located posteriorly at the right lung base. Trace dependent left lateral effusion. Numerous number of small bilateral pulmonary nodules involving all
lobes, majority of these measure no greater than 5 mm, concerning for metastatic disease. Areas of pleural thickening and nodularity along portions of the major fissure and along the pleural surface in the right lower lung zone, findings that would
be consistent with history of mesothelioma. Trace pleural thickening involving portions of the left lower lobe raising possibility of metastatic pleural disease. Upper lobe predominant centrilobular emphysema change to moderate in extent.
CT chest 01/26/2024-scattered bilateral pulmonary nodules majority measuring up to 1 cm nodular opacifications in the lungs bilaterally which are new, prominence of pulmonary interstitium with new small bilateral pleural effusions, small mediastinal
lymph nodes, suspicious for malignancy including possible lymphangitic spread, comparison made to scan July 24, 2021
PET scan 05/07/2021-moderate partially loculated right pleural effusion max SUV 1.7, multiple partially calcified pleural plaques, max SUV 3.7, right pericardial fat pad demonstrates max SUV 8.3, redemonstration of small nodular partially calcified
pleural plaque along right middle lobe SUV 4.6, pleural-based nodule 1.6 cm with SUV 2.9
Lung biopsy 05/07/2021-malignant mesothelioma
Thoracentesis 05/27/2021-small amount of fluid inadequate for analysis
Echocardiogram 06/04/2023-EF 60-65%, PA systolic 35-40
PFT 08/11/2022-FEV1 1.6-55%, FVC 2.69-69%, 11% improvement in FEV1, TLC 70%, DLCO 49%
Data Reviewed
-
PFT: Report reviewed by me
EKG: Report reviewed by me
Radiology: Report reviewed by me
CT Scan: Image personally visualized and interpreted and Report reviewed by me
Medical Tests (Nuc Med, Echo etc): Report reviewed by me
Labs: Labs reviewed by me
Old Records: Reviewed
Total Time Spent with Patient (in minutes): 65
[2024-01-27] MEDS: VENTOLIN NEBULES 2.5 MG INH ×2 (10:47→18:04)
[2024-01-27 12:09] LABS: Glucose - Point of Care 125 mg/dl (70-99)
[2024-01-27 12:43] LABS: B.E. 9.8 mmol/L; HCO3 36.1 mmol/L (21-28); O2 Saturation % 94.1 % (94-98); PCO2 52 mmHg (35-48); PO2 71 mmHg (83-108); pH 7.45 (7.35-7.45)
[2024-01-27] MEDS: TYLENOL 650 MG PO (14:38)
--- NOTE | 2024-01-27 15:29 | PTCARENOTE ---
Pt presents as assessed. Aox3. NSR on tele monitor. Weaned to 6L MF with sats in the mid 90's. Voiding in urinal. OOB to chair. at bedside, updated on plan of care.
[2024-01-27 15:38] LABS: COVID-19 Antigen Negative (Negative)
[2024-01-27] MEDS: ZOSYN 100 IV ×2 (17:02→22:22)
[2024-01-27 17:04] LABS: Glucose - Point of Care 125 mg/dl (70-99)
--- NOTE | 2024-01-27 19:53 | PTCARENOTE ---
Pt daughter Echo would like to be called with updates regarding her father, as pt and pt's do not recall their conversations with the docs about test results/plans. Echo is under contacts. #[phone]
[2024-01-27] MEDS: VIBRAMYCIN 100 MG PO (20:01)
[2024-01-27 21:25] LABS: Glucose - Point of Care 165 mg/dl (70-99)
[2024-01-27] MEDS: ROXICODONE 5 MG PO (21:54)
[2024-01-28] VITALS (23 sets, daily range): BP systolic 71–134; BP diastolic 45–123; BMI 29.9
[2024-01-28] MEDS: ZOSYN 100 IV ×4 (04:45→22:00)
[2024-01-28 04:54] LABS: Hematocrit 29.8 % (39.0-52.0); Mean Corp Hgb Conc. 30.2 g/dL (33.0-37.0); Mean Corpuscular Hgb 29.2 pg (27.0-31.0); Mean Corpuscular Volume 96.8 fL (80.0-94.0); Mean Platelet Volume 10.6 fL (7.4-10.4); Platelet Count 249 10^3/uL (130-400); Red Blood Cell Count 3.08 10^6/uL (4.70-6.10); Red Cell Dist. Width 19.9 % (11.5-14.5); White Blood Cell Count 3.9 10^3/uL (4.8-10.8)
[2024-01-28 05:28] LABS: Blood Urea Nitrogen 31 mg/dl (9-20); Calcium 9.1 mg/dl (8.4-10.2); Carbon Dioxide 35 mmol/L (22-30); Chloride 100 mmol/L (98-107); Estimated Creatinine Clearance 50 ml/min; Glucose 104 mg/dl (70-99); Potassium 4.5 mmol/L (3.5-5.1); Sodium 139 mmol/L (135-145); eGFR 50.08
--- NOTE | 2024-01-28 06:30 | PTCARENOTE ---
Pt complained of acute on chronic right sided back and pleuratic pain. Pt given PRN ordered Oxy. Pain reassesed, Pt expressed no change in pain. CARDIOLOGY NURSE PRACTITIONER contacted. Morphine ordered X1 and administered. Medication effective. Pt resting on 6L 02, SAT
100%. no other acute changes at this time. Please see nurisng assessment for full head to toe.
[2024-01-28 07:33] LABS: Glucose - Point of Care 81 mg/dl (70-99)
[2024-01-28] MEDS: SYMBICORT 80/4.5 MCG INHALER 2 PUFF INH ×2 (08:03→20:14)
[2024-01-28] MEDS: SPIRIVA RESPIMAT 2.5 MCG 2 PUFF INH (08:03)
--- NOTE | 2024-01-28 08:09 | W.PN.PUL.V3 ---
Today's Communication / Plan
-
Wean oxygen
Check chest ultrasound to see if there is enough fluid for thoracentesis
Continue inhalers
Assessment
-
68-year-old male with a history of mesothelioma undergoing chemotherapy at [facility] as well as chronic kidney disease, diabetes, COPD presented with increasing shortness of breath over the last 6 months-pulmonary was consulted for shortness of breath
01/27/2024.
Assessment
Shortness of vvvvhf-xnmiuctqectqmq-lnynqoqpaai lung disease, pleural effusion, pleural thickening, interstitial process
Markedly abnormal CT chest-pleural thickening, effusion, interstitial process and multiple nodules-Dr. Corbett reviewed November 2023 CT without significant change
Heart failure-unknown type
Pleural effusion-left greater than right
Troponin elevation
Tvijtw-gnrbhufwed-jbwwypvbcv 9.5
Hyperglycemia
Conditions present prior to admission:
Fatty liver.
Obesity.
Hyperlipidemia.
Diabetes.
Mesothelioma diagnosed 2021-enrolled study [facility] immunotherapy and chemotherapy.
COPD.
Former vvikui-42-tfaq-year.
GERD.
Restrictive lung disease.
Peripheral eosinophilia.
BOOGIE suspected-polysomnogram recommended-never followed through
Spontaneous pneumothorax.
Hernia repair.
Carpal tunnel 2018.
Cataract 2015.
Pleural lung biopsy.
Renal stone removal 2021.
Family history of lung qyhocp-kcvxnn-geiltt
Plan
Respiratory decompensation has occurred slowly over the weeks and months with markedly abnormal CT chest suggesting possible lymphangitic spread
Continue supplemental oxygen as needed-attempt to wean
Continue attempts at diuresis
Follow renal function, electrolytes, intake/output, lower extremity edema and weight
Replace electrolytes as needed
Follow radiographically
Aspiration precautions
Symbicort and Spiriva continue
Nebulizers as needed
Mucolytic's as needed
Trend troponin
Last echocardiogram summarized below
Review of CT suggests unlikely significant fluid for thoracentesis-Possibly on the left side.
Check ultrasound to see if there is any fluid for thoracentesis on both sides
Monitor hemoglobin
Transfuse as needed
Monitor blood sugar
Insulin supplementation as needed
DVT prophylaxis-on subcu heparin
Nutrition
Early mobilization
Outpatient follow-up at [facility]
Last seen in Dr. Fatuma Barker 01/26/20241621-neuctg-an again as an outpatient for local pulmonary care
Diagnostic data:
Chest x-ray 05/12-no pneumothorax following right-sided thoracentesis, small to moderate residual right pleural effusion
Chest x-ray 01/26/2024-moderate CHF, moderate right pleural effusion
CT chest 07/24/2021-no evidence for pulmonary embolism, nodularity right pleural base suggesting metastatic disease which is stable, mild right hilar lymphadenopathy, moderate right pleural effusion and emphysematous changes
CT chest PE study at [facility] 12/01/2023: No PE. Small mildly complex pleural effusion located posteriorly at the right lung base. Trace dependent left lateral effusion. Numerous number of small bilateral pulmonary nodules involving all
lobes, majority of these measure no greater than 5 mm, concerning for metastatic disease. Areas of pleural thickening and nodularity along portions of the major fissure and along the pleural surface in the right lower lung zone, findings that would
be consistent with history of mesothelioma. Trace pleural thickening involving portions of the left lower lobe raising possibility of metastatic pleural disease. Upper lobe predominant centrilobular emphysema change to moderate in extent.
CT chest 01/26/2024-scattered bilateral pulmonary nodules majority measuring up to 1 cm nodular opacifications in the lungs bilaterally which are new, prominence of pulmonary interstitium with new small bilateral pleural effusions, small mediastinal
lymph nodes, suspicious for malignancy including possible lymphangitic spread, comparison made to scan July 24, 2021
PET scan 05/07/2021-moderate partially loculated right pleural effusion max SUV 1.7, multiple partially calcified pleural plaques, max SUV 3.7, right pericardial fat pad demonstrates max SUV 8.3, redemonstration of small nodular partially calcified
pleural plaque along right middle lobe SUV 4.6, pleural-based nodule 1.6 cm with SUV 2.9
Lung biopsy 05/07/2021-malignant mesothelioma
Thoracentesis 05/27/2021-small amount of fluid inadequate for analysis
Echocardiogram 06/04/2023-EF 60-65%, PA systolic 35-40
PFT 08/11/2022-FEV1 1.6-55%, FVC 2.69-69%, 11% improvement in FEV1, TLC 70%, DLCO 49%
Subjective Data
-
Date of Service:
Date of Service: January 28, 2024
Chief Complaint: Pulmonary Follow Up and Dyspnea Follow Up
Subjective:
Feels about the same, no increase shortness of breath, has dyspnea with minimal exertion, no chest pain, productive cough or abdominal pain
Review of Systems
General: Other (Per HPI)
Objective Data
Data Reviewed
Vital Signs / I&O:
Vital Signs
Temp Pulse Resp BP Pulse Ox
97.8 F 76 16 134/123 98
01/28/24 03:14 01/28/24 08:08 01/28/24 08:08 01/28/24 06:09 01/28/24 08:08
Intake and Output
01/27/24 01/28/24 01/29/24
06:59 06:59 06:59
Intake Total 870 / 870 400 / 400
Output Total 1150 / 1150 1850 / 1850
Balance -1150 / -1150 -980 / -980 400 / 400
SaO2: 98
Physical Exam
General: Respiratory Distress and Comfortable
HEENT: Normocephalic, Anicteric and Moist Mucous Membranes
Cardiovascular: Regular Rhythm
Respiratory: Clear (Diminished breath sounds both bases left greater than right), Wheeze (n), Crackles (Rare basilar), Non-Labored Respirations, Accessory Resp Muscle Use (n) and Stridor (n)
GI: Soft, Non Distended and Non Tender
Neurology: Awake, Alert and No Motor Deficits
Skin: Warm, Good Color, Cyanosis (n), Jaundice (n) and Rash (n)
Labs/Micro/Reports
Lab Data
01/28/24 04:42
01/28/24 04:42
Laboratory Results
01/27/24
12:20
pH 7.45
pCO2 52 H
pO2 71 L
HCO3 36.1 H
O2 Delivery Level
Microbiology
01/27/24 15:18 Urine Legionella Urinary Antigen - Final
Negative for Legionella pneumophila Serogroup 1 antigen.
A negative result does not rule out the possiblity of
Legionella infection due to other serogroups or species of
Legionella. Clinical correlation is recommended.
01/27/24 15:18 Urine Streptococcus pneumoniae Antigen (M - Final
Negative for Streptococcus pneumoniae antigen.
A negative result does not exclude infection with
Streptococcus pneumoniae. Clinical correlation is
recommended.
01/27/24 15:18 Nasal Swab Influenza Types A & B (THOMAS) - Final
Negative for Influenza A & B, NAAT
Negative results must be combined with clinical observations
and patient history.
Nucleic Acid Amplification test (NAAT)performed on the
[employer] platform.
[2024-01-28] MEDS: COREG 12.5 MG PO ×2 (08:16→20:31)
[2024-01-28] MEDS: COZAAR 100 MG PO (08:17)
[2024-01-28] MEDS: HEPARIN 5000 UNITS SC ×2 (08:18→20:33)
[2024-01-28] MEDS: FLOMAX 0.800000000000000044 MG PO (08:18)
[2024-01-28] MEDS: PROSCAR 5 MG PO (08:19)
[2024-01-28] MEDS: LIPITOR 80 MG PO (08:19)
[2024-01-28] MEDS: LYRICA 50 MG PO ×2 (08:19→20:33)
[2024-01-28] MEDS: VIBRAMYCIN 100 MG PO ×2 (08:19→20:33)
[2024-01-28] MEDS: TRICOR 145 MG PO (08:19)
[2024-01-28] MEDS: LASIX IV (09:19)
--- NOTE | 2024-01-28 10:52 | W.PN.HOSP.TC ---
Today's Communication/Plan
-
see note
Assessment / Plan
Assessment / Plan
CT chest
Innumerable scattered bilateral pulmonary nodules majority of which measure up to 1 cm as well as new nodular opacities in the lungs bilaterally, latter of which may be at least in part be fissurally associated. Prominence of the pulmonary
interstitium, new small bilateral pleural effusions, small mediastinal lymph nodes and possible small retrocrural lymph node. In light of the clinical history, findings must be at least deemed suspicious for malignancy including possible
lymphangitic spread of tumor.
Depression of dense consolidation in the anterior right lower lung/right middle lobe.
Tiny prominent size right axillary lymph node.
Coronary artery calcifications.

1. Acute on chronic hypoxic respiratory failure
� � Suspected new HF
-Patient comes in with progressive shortness of breath, slowly worsening over 6 months per patient
-CXR showing moderate CHF. Moderate right pleural effusion.
-ProBNP elevated 1700. in April 13 was 500, suspecting component of new heart failure.� Echocardiogram showed preserved EF.
-CT chest report as above. Discussed with pulmonology as well. Started on empiric Zosyn/doxycycline
-Weight has down greater than 3 pounds approximately, hold further Lasix today
-Continue wean off oxygen as possible
2.Left pleural effusion
Right pleural effusion - ruled out
-Chest x-ray questioning moderate right-sided pleural effusion.
-CT chest w/o contrast did not show right effusion.
-IR consulted for left-sided small effusion if amenable to thoracentesis will help with oxygenation
3. Troponin elevation
-minimal with hypoxia,
-Trop max of 0.1 , trending down
-EKG did not show any ST/T seg changes
4. Mesothelioma
- f/u with [facility] oncology. due for next round chemo today per family
5. CKDIIIA
- cr close to baseline. monitor post Lasix.
Normocytic anemia
stu-lvneren-jmsnoslri diabetes mellitus
COPD
former tobacco use
history of pneumothorax
restrictive lung disease
hyperlipidemia
obesity
DVT PPX - heparin subq
Full code -confirmed with patient
Case discussed with metal punch press operator
Family updated bedside
Total time spent : 52 mins
I personally saw and examined the patient.
I have reviewed all diagnostic interpretations and treatment plans as written.
Time includes patient management by me, time spent at the patients bedside, time to review lab and imaging results, discussing patient care, documentation in the medical record, and time spent with the family or caregiver and discussing care plan
with RN/Consultants.
Anticipated Discharge: 24 - 48 hours
Subjective/Interval History
-
Date of Service: January 28, 2024
no significant dyspne/afebrile in night
o2 requirement is down to 6L through midflow
no other acute issues reported
Objective Data
-
Labs:
Laboratory Results
01/28/24
04:42
WBC 3.9 L
Hgb 9.0 L
Hct 29.8 L
Plt Count 249
Sodium 139
Potassium 4.5
Chloride 100
Carbon Dioxide 35 H
BUN 31 H
Creatinine 1.5 H
Glucose 104 H
Calcium 9.1
Vital Signs:
Vital Signs
Temp Pulse Resp BP Pulse Ox
97.6 F 89 16 113/65 96
01/28/24 07:56 01/28/24 08:17 01/28/24 08:08 01/28/24 08:17 01/28/24 10:30
I&O
01/27/24 01/28/24 01/29/24
06:59 06:59 06:59
Intake Total 870 / 870 640 / 640
Output Total 1150 / 1150 1850 / 1850 200 / 200
Balance -1150 / -1150 -980 / -980 440 / 440
Review of Systems
-
Respiratory: Reports Cough; Denies Trouble Breathing or Wheezing
Cardiac: Reports No Symptoms
Abdomen/GI: Reports No Symptoms
Physical Exam
-
General: Obese; Negative Appears in Distress
Respiratory: Rhonchi and Other (oxygen 6L/m); Negative Wheezes
Cardiac: Regular Rhythm and S1/S2; Negative Murmur
GI: Soft, Nontender and Nondistended
Musculoskeletal: Other (resolved swelling b/l LE )
Skin: Negative Rash
Neuro: Awake, Alert, AO x 3 and No Motor Deficits
Psych: Calm
--- NOTE | 2024-01-28 12:47 | W.PN.UPDATE ---
Update Note
Progress Note Update
Ultrasound performed on both sides of the chest. Not enough fluid on either side for safe thoracentesis.
--- NOTE | 2024-01-28 12:48 | PTCARENOTE ---
Patient went to IR for thoracentesis, procedure not performed. 6 liters of oxygen via midflow continues. Patient has dyspnea with exertion. Patient is awake, alert and oriented x3 this shift. Denying pain when asked. Out of bed to chair,
repositioning self. Family at bedside.
[2024-01-28 12:51] LABS: Glucose - Point of Care 93 mg/dl (70-99)
--- NOTE | 2024-01-28 13:35 | CM ---
Met with patient and spouse at the bedside; initial assessment completed
Pharmacy verified: [facility], [address], [place]
Patient lethargic; reported that she and her live in a 3 story home including basement; 1 step to enter; 10-12 steps between floors; full bath on the first floor with walk-in shower
PLOF: reports patient was independent with ADLs and ambulation but she provides assistance; has home oxygen; [place] [facility] [place]
SNF/Rehab/Home Care utilization history: NONE reported
DME: Oxygen, Nebulizer
Plan: to be determined; PT/OT assessment pending
[2024-01-28] MEDS: ROXICODONE 5 MG PO ×2 (15:13→23:20)
--- NOTE | 2024-01-28 15:15 | PN.CDI ---
CDI
- -
CDI:
Physician Documentation Request
Admit Date: 01/26/24 15:36
Dear Doctor Aric,
Patient admitted with new heart failure. Troponin elevation noted.
Laboratory Tests
01/26/24 01/26/24 01/27/24
13:07 17:42 00:44
Troponin I 0.082 H* 0.107 H* D 0.081 H*
Could you please provide a diagnosis that supports the above lab abnormalities and additional evaluation/monitoring:
Non Ischemic myocardial injury
Type II [place] demand ischemic
Other
Use of terms such as suspected, likely, concern for, or probable (associated with a specific diagnosis that is being evaluated, monitored, or treated as if it exists) are acceptable and can be coded in the inpatient setting, when documented at the
time of discharge.
Thank you,
Fabi Harkins RN, BSN
CDI Specialist
tiger text
Please use your independent medical judgment in providing your response.
[2024-01-28 17:42] LABS: Glucose - Point of Care 124 mg/dl (70-99)
[2024-01-28] MEDS: TYLENOL 650 MG PO (20:50)
[2024-01-28] MEDS: MORPHINE SULFATE 1 MG IV (21:56)
[2024-01-28 22:46] LABS: Glucose - Point of Care 131 mg/dl (70-99)
--- NOTE | 2024-01-28 23:43 | W.PN.UPDATE ---
Update Note
Progress Note Update
Nurse informed she noticed rash under the right chest, patient reported tingling pain. Upon assessment, rash noted under right chest extending to the back consistent with dermatome. Placed order for Valtrex 1g po TID.
[2024-01-28] MEDS: VALTREX 1000 MG PO (23:54)
[2024-01-29] VITALS (17 sets, daily range): BP systolic 84–133; BP diastolic 38–75; BMI 29.9
[2024-01-29] MEDS: MORPHINE SULFATE 1 MG IV ×2 (02:43→22:12)
--- NOTE | 2024-01-29 03:42 | PTCARENOTE ---
Pt having complains of pain on right side,flank,rib area. Night Senior Education Specialist notified one time does morphine given. Reassessment pain still 7/10 prn oxycodone given. With reassessment this RN noticing a red rash in line following under Pt chest around to back
looking like shingles, Night Senior Education Specialist made aware, Valtrex order given. Night tearoom host and RN advertising dispatch clerks supervisor notified, asked about precaution change RN told to keep as contact for now wear mask. Pt still having complaints of pain along with reports of sob, Pr
RR 20 SPo2 98% on 8L midflow, night BIOFUELS PRODUCTION ASSOCIATE made aware second one time order of morphine given, Emotional support given. Reassessment pt appearing to be resting comfortably, Even unlabored respirations, vitals stable at this time. Assessments care and
vitals as charted.
[2024-01-29] MEDS: ZOSYN 100 IV ×4 (04:03→21:18)
[2024-01-29 04:54] LABS: Hematocrit 30.5 % (39.0-52.0); Hemoglobin 9.4 g/dL (13.0-18.0); Mean Corp Hgb Conc. 30.8 g/dL (33.0-37.0); Mean Corpuscular Hgb 29.7 pg (27.0-31.0); Mean Corpuscular Volume 96.5 fL (80.0-94.0); Mean Platelet Volume 10.1 fL (7.4-10.4); Platelet Count 248 10^3/uL (130-400); Red Blood Cell Count 3.16 10^6/uL (4.70-6.10); Red Cell Dist. Width 19.7 % (11.5-14.5); White Blood Cell Count 4.3 10^3/uL (4.8-10.8)
[2024-01-29 05:10] LABS: Blood Urea Nitrogen 29 mg/dl (9-20); Carbon Dioxide 34 mmol/L (22-30); Chloride 103 mmol/L (98-107); Estimated Creatinine Clearance 42 ml/min; Glucose 95 mg/dl (70-99); Potassium 4.8 mmol/L (3.5-5.1); Sodium 138 mmol/L (135-145); eGFR 40.24
[2024-01-29] MEDS: SYMBICORT 80/4.5 MCG INHALER 2 PUFF INH ×2 (07:49→20:07)
[2024-01-29] MEDS: SPIRIVA RESPIMAT 2.5 MCG 2 PUFF INH (07:49)
[2024-01-29 08:08] LABS: Glucose - Point of Care 79 mg/dl (70-99)
--- NOTE | 2024-01-29 08:43 | W.PN.HOSP.TC ---
Today's Communication/Plan
-
see note
hospice eval - family wants info
Assessment / Plan
Assessment / Plan
CT chest
Innumerable scattered bilateral pulmonary nodules majority of which measure up to 1 cm as well as new nodular opacities in the lungs bilaterally, latter of which may be at least in part be fissurally associated. Prominence of the pulmonary
interstitium, new small bilateral pleural effusions, small mediastinal lymph nodes and possible small retrocrural lymph node. In light of the clinical history, findings must be at least deemed suspicious for malignancy including possible
lymphangitic spread of tumor.
Depression of dense consolidation in the anterior right lower lung/right middle lobe.
Tiny prominent size right axillary lymph node.
Coronary artery calcifications.

1. Acute on chronic hypoxic respiratory failure
� � Suspected new HF
-Patient comes in with progressive shortness of breath, slowly worsening over 6 months per patient
-CXR showing moderate CHF. Moderate right pleural effusion.
-ProBNP elevated 1700. in April 13 was 500, suspecting component of new heart failure.� Echocardiogram showed preserved EF.
-CT chest report as above. Discussed with pulmonology as well. Started on empiric Zosyn/doxycycline
-Patient creatinine elevated to 1.8 today. Lasix dose was held yesterday and will continue to hold today
-Discussed prognosis with family and patient family understands if oxygenation did not improve with empiric measures hospice will be required
2.Left pleural effusion
Right pleural effusion - ruled out
-Chest x-ray questioning moderate right-sided pleural effusion.
-CT chest w/o contrast did not show right effusion.
-IR evaluated and not enough fluid to drain
3. Troponin elevation
-minimal with hypoxia,
-Trop max of 0.1 , trending down
-EKG did not show any ST/T seg changes
4. Mesothelioma
- f/u with [facility] oncology. due for next round chemo today per family
5. JOLYNN on CKDIIIA
-Creatinine elevated to 1.8. Hold further Lasix dose and monitor.
6. Acute VZV infection
-Micropapular rash breaking out on right lower rib cage following dermatomal distribution
-Patient have remote history of shingles infection in past
-Start on valacyclovir. Monitor renal function
Normocytic anemia
wum-tkszahx-kcwvlxief diabetes mellitus
COPD
former tobacco use
history of pneumothorax
restrictive lung disease
hyperlipidemia
obesity
DVT PPX - heparin subq
Full code -confirmed with patient
01/26,, Case discussed with cage tender Family updated bedside
Anticipated Discharge: > 48 hours
Subjective/Interval History
-
Date of Service: January 29, 2024
Patient denies of having excessive dyspnea
Unable to tolerate any activity and desaturates to mid 80s on 5- 6 L
Started having new rash on the right side
Objective Data
-
Labs:
Laboratory Results
01/29/24
04:12
WBC 4.3 L
Hgb 9.4 L
Hct 30.5 L
Plt Count 248
Sodium 138
Potassium 4.8
Chloride 103
Carbon Dioxide 34 H
BUN 29 H
Creatinine 1.8 H
Glucose 95
Calcium 9.0
Vital Signs:
Vital Signs
Temp Pulse Resp BP Pulse Ox
98.1 F 74 18 97/59 99
01/29/24 03:51 01/29/24 08:02 01/29/24 08:02 01/29/24 04:00 01/29/24 08:02
I&O
01/28/24 01/29/24 01/30/24
06:59 06:59 07:59
Intake Total 870 / 870 2100 / 2099
Output Total 1850 / 1850 800 / 800
Balance -980 / -980 1300 / 1300
Review of Systems
-
Respiratory: Reports No Symptoms
Cardiac: Reports No Symptoms
Abdomen/GI: Reports No Symptoms
Skin: Reports Rash
Physical Exam
-
General: Obese; Negative Appears in Distress
Respiratory: Rhonchi and Other (oxygen 6L/m); Negative Wheezes
Cardiac: Regular Rhythm and S1/S2; Negative Murmur
GI: Soft, Nontender and Nondistended
Musculoskeletal: Other (resolved swelling b/l LE )
Skin: Rash (Right lower rib, tracks dermatomal distribution, no blisters)
Neuro: Awake, Alert, AO x 3 and No Motor Deficits
Psych: Calm
[2024-01-29] MEDS: TRICOR 145 MG PO (09:52)
[2024-01-29] MEDS: FLOMAX 0.800000000000000044 MG PO (09:52)
[2024-01-29] MEDS: COZAAR 100 MG PO (09:53)
[2024-01-29] MEDS: LIPITOR 80 MG PO (09:53)
[2024-01-29] MEDS: LYRICA 50 MG PO ×2 (09:53→19:31)
[2024-01-29] MEDS: COREG 12.5 MG PO ×2 (09:53→21:19)
[2024-01-29] MEDS: VIBRAMYCIN 100 MG PO ×2 (09:53→19:32)
[2024-01-29] MEDS: VALTREX 1000 MG PO ×3 (09:53→21:18)
[2024-01-29] MEDS: PROSCAR 5 MG PO (09:53)
[2024-01-29] MEDS: HEPARIN 5000 UNITS SC ×2 (09:54→19:32)
--- NOTE | 2024-01-29 10:48 | W.PN.PUL3 ---
Today's Communication / Plan
-
Wean o2 as tolerated, reviewed with RT
Eventual home O2 eval and set up if indicated
On empiric abx-- can check procal, if neg would stop
Family is interested in pall care/we discussed what this would entail, consult placed
Outpatient pulmonary FU recommended, following at [facility]
Assessment
-
68-year-old male with a history of mesothelioma undergoing chemotherapy at [facility] as well as chronic kidney disease, diabetes, COPD presented with increasing shortness of breath over the last 6 months-pulmonary was consulted for shortness of breath
01/27/2024.
Shortness of quhdms-cfsahrcnywxtiw-hrzucuzvacf lung disease, pleural effusion, pleural thickening, interstitial process
Markedly abnormal CT chest-pleural thickening, effusion, interstitial process and multiple nodules-Dr. Corbett reviewed November 2023 CT without significant change
Heart failure pEF
Pleural effusion-left greater than right
Troponin elevation
Yqnvqu-elquusvdpy-taowwxdicb 9.5
Hyperglycemia
Conditions present prior to admission:
Fatty liver.
Obesity.
Hyperlipidemia.
Diabetes.
Mesothelioma diagnosed 2021-enrolled study [facility] immunotherapy and chemotherapy.
COPD.
Former [id number]-year.
GERD.
Restrictive lung disease.
Peripheral eosinophilia.
BOOGIE suspected-polysomnogram recommended-never followed through
Spontaneous pneumothorax.
Hernia repair.
Carpal tunnel 2017.
Cataract 2014.
Pleural lung biopsy.
Renal stone removal 2021.
Family history of lung ugfawe-fcjmvm-ligbnl
Plan
99% on 6-8L midflow, can wean as tolerated
This was reviewed with RT
Respiratory decompensation has occurred slowly over the weeks and months with markedly abnormal CT chest suggesting possible lymphangitic spread
Mesothelioma history
Continue supplemental oxygen as needed-attempt to wean
Likely to need home set up, home O2 eval
HFpEF, prior ECHO with normal EF
Continue attempts at diuresis
Follow renal function, electrolytes, intake/output, lower extremity edema and weight
Replace electrolytes as needed
Follow radiographically
Trend troponin
Last echocardiogram summarized below
COPD history/RLD
Aspiration precautions
Symbicort and Spiriva continue
Nebulizers as needed
Mucolytic's as needed
Placed on abx empirically
If procal neg can likely stop
Review of CT suggests unlikely significant fluid for thoracentesis-Possibly on the left side.
Chest US w/ small bilateral pleural effusions--The amount of fluid was considered inadequate for safe thoracentesis
Monitor hemoglobin
Transfuse as needed
Monitor blood sugar
Insulin supplementation as needed
DVT prophylaxis-on subcu heparin
Nutrition
Early mobilization
Outpatient follow-up at [facility]
Last seen in Dr. Fatuma Barker 01/26/[id number]-paxjbc-op again as an outpatient for local pulmonary care
Family is interested in palliative care
Consult placed
Diagnostic Data:
Chest x-ray 05/12-no pneumothorax following right-sided thoracentesis, small to moderate residual right pleural effusion
Chest x-ray 01/26/2024-moderate CHF, moderate right pleural effusion
CT chest 07/24/2021-no evidence for pulmonary embolism, nodularity right pleural base suggesting metastatic disease which is stable, mild right hilar lymphadenopathy, moderate right pleural effusion and emphysematous changes
CT chest PE study at [facility] 12/01/2023: No PE. Small mildly complex pleural effusion located posteriorly at the right lung base. Trace dependent left lateral effusion. Numerous number of small bilateral pulmonary nodules involving all
lobes, majority of these measure no greater than 5 mm, concerning for metastatic disease. Areas of pleural thickening and nodularity along portions of the major fissure and along the pleural surface in the right lower lung zone, findings that would
be consistent with history of mesothelioma. Trace pleural thickening involving portions of the left lower lobe raising possibility of metastatic pleural disease. Upper lobe predominant centrilobular emphysema change to moderate in extent.
CT chest 01/26/2024-scattered bilateral pulmonary nodules majority measuring up to 1 cm nodular opacifications in the lungs bilaterally which are new, prominence of pulmonary interstitium with new small bilateral pleural effusions, small mediastinal
lymph nodes, suspicious for malignancy including possible lymphangitic spread, comparison made to scan July 24, 2021
PET scan 05/07/2021-moderate partially loculated right pleural effusion max SUV 1.7, multiple partially calcified pleural plaques, max SUV 3.7, right pericardial fat pad demonstrates max SUV 8.3, redemonstration of small nodular partially calcified
pleural plaque along right middle lobe SUV 4.6, pleural-based nodule 1.6 cm with SUV 2.9
Lung biopsy 05/07/2021-malignant mesothelioma
Thoracentesis 05/27/2021-small amount of fluid inadequate for analysis
Echocardiogram 06/04/2023-EF 60-65%, PA systolic 35-40
PFT 08/11/2022-FEV1 1.6-55%, FVC 2.69-69%, 11% improvement in FEV1, TLC 70%, DLCO 49%
Subjective Data
-
Date of Service:
Date of Service: January 29, 2024
Chief Complaint: Pulmonary Follow Up and Dyspnea Follow Up
Subjective:
remains on O2, 6L
no new complaints
daughters at bedside
Objective Data
Data Reviewed
Vital Signs / I&O / Oxygen:
Vital Signs
Temp Pulse Resp BP Pulse Ox
97.7 F 90 18 113/58 99
01/29/24 07:07 01/29/24 09:53 01/29/24 08:02 01/29/24 09:53 01/29/24 08:02
Intake and Output
01/28/24 01/29/24 01/30/24
06:59 06:59 07:59
Intake Total 870 / 870 2100 / 2100
Output Total 1850 / 1850 800 / 800
Balance -980 / -980 1300 / 1300
SaO2 99
Physical Exam
General: Comfortable, Pain (denies) and Other (NAD)
HEENT: Normocephalic, Anicteric and Moist Mucous Membranes
Cardiovascular: S1-S2 and Regular Rhythm
Respiratory: Clear (Diminished breath sounds both bases left greater than right), Wheeze (n), Crackles (Rare basilar), Non-Labored Respirations, Accessory Resp Muscle Use (n) and Stridor (n)
GI: Soft, Non Distended and Non Tender
Neurology: Awake, Alert, Oriented, AO x 3, No Motor Deficits and Depressed
Skin: Warm, Good Color, Cyanosis (n), Jaundice (n) and Rash (n)
Labs/Micro/Reports
Lab Data
01/29/24 04:12
01/29/24 04:12
Microbiology
01/26/24 21:04 Nose MRSA Screen - Final
No Methicillin Resistant Staphylococcus aureus isolated.
01/27/24 15:18 Urine Legionella Urinary Antigen - Final
Negative for Legionella pneumophila Serogroup 1 antigen.
A negative result does not rule out the possiblity of
Legionella infection due to other serogroups or species of
Legionella. Clinical correlation is recommended.
01/27/24 15:18 Urine Streptococcus pneumoniae Antigen (M - Final
Negative for Streptococcus pneumoniae antigen.
A negative result does not exclude infection with
Streptococcus pneumoniae. Clinical correlation is
recommended.
01/27/24 15:18 Nasal Swab Influenza Types A & B (THOMAS) - Final
Negative for Influenza A & B, NAAT
Negative results must be combined with clinical observations
and patient history.
Nucleic Acid Amplification test (NAAT)performed on the
[employer] platform.
[2024-01-29 13:18] LABS: Glucose - Point of Care 116 mg/dl (70-99)
--- NOTE | 2024-01-29 16:51 | PTCARENOTE ---
Assumed care of patient at beginning of this shift from previous RN. Patient did not want to sit in the chair today but did sit on the side of the bed; 1 assist to stand to void. Family at the bedside throughout the day. CM in to speak to patient
and family regarding hospice. POx 89-94% on 8L midflow. See worklist for full assessment and vital signs; see MAR for med administration.
[2024-01-29 17:58] LABS: Glucose - Point of Care 124 mg/dl (70-99)
[2024-01-29] MEDS: ROXICODONE 5 MG PO (19:31)
[2024-01-29] MEDS: COREG PO (19:32)
[2024-01-29 22:10] LABS: Glucose - Point of Care 125 mg/dl (70-99)
--- NOTE | 2024-01-29 23:49 | PTCARENOTE ---
Pt had a difficult conversation today with family and about possible hospice. Pt appears to be more somber, processing news and options, emotional support given. Daughter had concerns about her father not wanting to talk about what was discussed
today with her, emotional support given and education about different responses with processing unfavorable news. Pt later had complaints of pain, jose rafael [employer] made aware one time order given (see MAR). Reassessment Pt appears to be resting comfortably,
respirations even and unlabored, vitals stable at this time. Assessment care and vitals as charted.
[2024-01-30] VITALS (12 sets, daily range): BP systolic 88–118; BP diastolic 56–83; BMI 30.2
[2024-01-30] MEDS: MORPHINE SULFATE 1 MG IV ×2 (03:48→22:22)
[2024-01-30] MEDS: ZOSYN 100 IV ×4 (04:22→21:25)
[2024-01-30] MEDS: ROXICODONE 5 MG PO ×2 (05:58→15:30)
[2024-01-30 07:47] LABS: Glucose - Point of Care 93 mg/dl (70-99)
[2024-01-30] MEDS: SPIRIVA RESPIMAT 2.5 MCG 2 PUFF INH (07:59)
[2024-01-30] MEDS: SYMBICORT 80/4.5 MCG INHALER 2 PUFF INH ×2 (07:59→19:21)
--- NOTE | 2024-01-30 08:39 | VATNOTE ---
Trace swelling noted to dorsal aspect of R hand. IV removed. Heat applied and hand elevated.
[2024-01-30 08:57] LABS: Blood Urea Nitrogen 29 mg/dl (9-20); Calcium 8.8 mg/dl (8.4-10.2); Carbon Dioxide 34 mmol/L (22-30); Chloride 99 mmol/L (98-107); Estimated Creatinine Clearance 45 ml/min; Glucose 130 mg/dl (70-99); Potassium 4.3 mmol/L (3.5-5.1); Sodium 137 mmol/L (135-145)
[2024-01-30] MEDS: TRICOR 145 MG PO (09:34)
[2024-01-30] MEDS: FLOMAX 0.800000000000000044 MG PO (09:34)
[2024-01-30] MEDS: LYRICA 50 MG PO ×2 (09:34→20:25)
[2024-01-30] MEDS: VIBRAMYCIN 100 MG PO ×2 (09:34→20:25)
[2024-01-30] MEDS: COZAAR PO (09:34)
[2024-01-30] MEDS: VALTREX 1000 MG PO ×3 (09:34→20:31)
[2024-01-30] MEDS: LIPITOR 80 MG PO (09:34)
[2024-01-30] MEDS: HEPARIN 5000 UNITS SC ×2 (09:35→20:26)
[2024-01-30] MEDS: COREG 12.5 MG PO ×2 (09:35→20:25)
[2024-01-30] MEDS: PROSCAR 5 MG PO (09:35)
--- NOTE | 2024-01-30 10:16 | HOSPNOTE ---
Spoke with the patients Arianne this morning and gave information about Hospice services and care. Discussed the patients current condition and concerns she has about home management. She was offered a Hospice nurse visit between 1 and 2 today.
She agreed to the visit.
--- NOTE | 2024-01-30 10:27 | W.PN.PUL3 ---
Today's Communication / Plan
-
If procal neg can likely stop abx, or can complete 5 day course which would end tomorrow
Reviewed oxygen management with RT, can try venti mask with standing/exertion
Family is anxiously awaiting hospice team
Nothing more to add from our perspective, likely family to pursue palliation
We will sign off at this time, please call with questions
Assessment
-
68-year-old male with a history of mesothelioma undergoing chemotherapy at [facility] as well as chronic kidney disease, diabetes, COPD presented with increasing shortness of breath over the last 6 months-pulmonary was consulted for shortness of breath
01/27/2024.
Shortness of inrnio-yuqyzxzplimfwy-bngsliyvnfn lung disease, pleural effusion, pleural thickening, interstitial process
Markedly abnormal CT chest-pleural thickening, effusion, interstitial process and multiple nodules-Dr. Corbett reviewed November [address]23 CT without significant change
Heart failure pEF
Pleural effusion-left greater than right
Troponin elevation
Ofhqeb-eptnzvpmtv-nrajtstqcu 9.5
Hyperglycemia
Conditions present prior to admission:
Fatty liver.
Obesity.
Hyperlipidemia.
Diabetes.
Mesothelioma diagnosed 2021-enrolled study [facility] immunotherapy and chemotherapy.
COPD.
Former puesvc-27-edkt-year.
GERD.
Restrictive lung disease.
Peripheral eosinophilia.
BOOGIE suspected-polysomnogram recommended-never followed through
Spontaneous pneumothorax.
Hernia repair.
Carpal tunnel 2017.
Cataract 2014.
Pleural lung biopsy.
Renal stone removal 2021.
Family history of lung lkczah-kaedrg-vofved
Plan
99% on 6-8L midflow, can wean as tolerated
This was reviewed with RT
Respiratory decompensation has occurred slowly over the weeks and months with markedly abnormal CT chest suggesting possible lymphangitic spread
Mesothelioma history
Continue supplemental oxygen as needed-attempt to wean
Likely to need home set up, home O2 eval
HFpEF, prior ECHO with normal EF
Continue attempts at diuresis
Follow renal function, electrolytes, intake/output, lower extremity edema and weight
Replace electrolytes as needed
Follow radiographically
Trend troponin
Last echocardiogram summarized below
COPD history/RLD
Aspiration precautions
Symbicort and Spiriva continue
Nebulizers as needed
Mucolytic's as needed
Placed on abx empirically, on day 4
If procal neg can likely stop or can complete 5 days then stop
Review of CT suggests unlikely significant fluid for thoracentesis-Possibly on the left side.
Chest US w/ small bilateral pleural effusions--The amount of fluid was considered inadequate for safe thoracentesis
Monitor hemoglobin
Transfuse as needed
Monitor blood sugar
Insulin supplementation as needed
DVT prophylaxis-on subcu heparin
Nutrition
Early mobilization
Outpatient follow-up at [facility]
Last seen in Dr. Fatuma Barker 01/26/[id number]-bweoey-dz again as an outpatient for local pulmonary care
Family is interested in palliative care
Consult placed
Diagnostic Data:
Chest x-ray 05/12-no pneumothorax following right-sided thoracentesis, small to moderate residual right pleural effusion
Chest x-ray 01/26/2024-moderate CHF, moderate right pleural effusion
CT chest 07/24/2021-no evidence for pulmonary embolism, nodularity right pleural base suggesting metastatic disease which is stable, mild right hilar lymphadenopathy, moderate right pleural effusion and emphysematous changes
CT chest PE study at [facility] 12/01/2023: No PE. Small mildly complex pleural effusion located posteriorly at the right lung base. Trace dependent left lateral effusion. Numerous number of small bilateral pulmonary nodules involving all
lobes, majority of these measure no greater than 5 mm, concerning for metastatic disease. Areas of pleural thickening and nodularity along portions of the major fissure and along the pleural surface in the right lower lung zone, findings that would
be consistent with history of mesothelioma. Trace pleural thickening involving portions of the left lower lobe raising possibility of metastatic pleural disease. Upper lobe predominant centrilobular emphysema change to moderate in extent.
CT chest 01/26/2024-scattered bilateral pulmonary nodules majority measuring up to 1 cm nodular opacifications in the lungs bilaterally which are new, prominence of pulmonary interstitium with new small bilateral pleural effusions, small mediastinal
lymph nodes, suspicious for malignancy including possible lymphangitic spread, comparison made to scan July 24, 2021
PET scan 05/07/2021-moderate partially loculated right pleural effusion max SUV 1.7, multiple partially calcified pleural plaques, max SUV 3.7, right pericardial fat pad demonstrates max SUV 8.3, redemonstration of small nodular partially calcified
pleural plaque along right middle lobe SUV 4.6, pleural-based nodule 1.6 cm with SUV 2.9
Lung biopsy 05/07/2021-malignant mesothelioma
Thoracentesis 05/27/2021-small amount of fluid inadequate for analysis
Echocardiogram 06/04/2023-EF 60-65%, PA systolic 35-40
PFT 08/11/2022-FEV1 1.6-55%, FVC 2.69-69%, 11% improvement in FEV1, TLC 70%, DLCO 49%
Subjective Data
-
Date of Service:
Date of Service: January 30, 2024
Chief Complaint: Pulmonary Follow Up and Dyspnea Follow Up
Subjective:
no new events
desaturation noted with standing/walking
family awaiting hospice team
Objective Data
Data Reviewed
Vital Signs / I&O / Oxygen:
Vital Signs
Temp Pulse Resp BP Pulse Ox
97.5 F 86 18 108/72 94
01/30/24 07:10 01/30/24 09:35 01/30/24 08:02 01/30/24 09:35 01/30/24 08:02
Intake and Output
01/29/24 01/30/24 01/31/24
05:59 06:59 06:59
Intake Total 480 / 480
Output Total
Balance 480 / 480
SaO2 94
Physical Exam
General: Comfortable, Pain (denies) and Other (NAD)
HEENT: Normocephalic, Anicteric and Moist Mucous Membranes
Cardiovascular: S1-S2 and Regular Rhythm
Respiratory: Clear (Diminished breath sounds both bases left greater than right), Wheeze (n), Crackles (Rare basilar), Non-Labored Respirations, Accessory Resp Muscle Use (n) and Stridor (n)
GI: Soft, Non Distended and Non Tender
Neurology: Awake, Alert, Oriented, AO x 3, No Motor Deficits and Depressed
Skin: Warm, Good Color, Cyanosis (n), Jaundice (n) and Rash (n)
Labs/Micro/Reports
Lab Data
01/29/24 04:12
01/30/24 08:28
Microbiology
01/26/24 21:04 Nose MRSA Screen - Final
No Methicillin Resistant Staphylococcus aureus isolated.
01/27/24 15:18 Urine Legionella Urinary Antigen - Final
Negative for Legionella pneumophila Serogroup 1 antigen.
A negative result does not rule out the possiblity of
Legionella infection due to other serogroups or species of
Legionella. Clinical correlation is recommended.
01/27/24 15:18 Urine Streptococcus pneumoniae Antigen (M - Final
Negative for Streptococcus pneumoniae antigen.
A negative result does not exclude infection with
Streptococcus pneumoniae. Clinical correlation is
recommended.
01/27/24 15:18 Nasal Swab Influenza Types A & B (THOMAS) - Final
Negative for Influenza A & B, NAAT
Negative results must be combined with clinical observations
and patient history.
Nucleic Acid Amplification test (NAAT)performed on the
[employer] platform.
[2024-01-30] MEDS: ANESTHETIC LOZENGE 1 LOZENGE PO (11:15)
--- NOTE | 2024-01-30 11:51 | PTCARENOTE ---
"Assumed care of patient at beginning of this shift from previous RN on 8L midflow with POx 95-98% when resting in bed but drops to 85-88% when standing at bedside to use commode or any type of exertion. +RAMEY, even minimal exertion. CXR ordered by "Janessa"Arci. Per CM note, hospice nurse to meet with family today between 1-2pm. See worklist for full assessment and vital signs; see MAR for med administration. "
[2024-01-30 12:56] LABS: Glucose - Point of Care 90 mg/dl (70-99)
--- NOTE | 2024-01-30 13:15 | W.PN.HOSP.TC ---
Today's Communication/Plan
-
finish course of abx
hold further lasix
hospice staff meeting
Assessment / Plan
Assessment / Plan
CT chest
Innumerable scattered bilateral pulmonary nodules majority of which measure up to 1 cm as well as new nodular opacities in the lungs bilaterally, latter of which may be at least in part be fissurally associated. Prominence of the pulmonary
interstitium, new small bilateral pleural effusions, small mediastinal lymph nodes and possible small retrocrural lymph node. In light of the clinical history, findings must be at least deemed suspicious for malignancy including possible
lymphangitic spread of tumor.
Depression of dense consolidation in the anterior right lower lung/right middle lobe.
Tiny prominent size right axillary lymph node.
Coronary artery calcifications.

1. Acute on chronic hypoxic respiratory failure
� � Suspected new HF
-Patient comes in with progressive shortness of breath, slowly worsening over 6 months per patient
-CXR showing moderate CHF. Moderate right pleural effusion.
-ProBNP elevated 1700. in April 13 was 500, suspecting component of new heart failure.� Echocardiogram showed preserved EF.
-CT chest report as above. Discussed with pulmonology as well.
-Patient to finish empiric course of Zosyn and doxycycline 4/5 days.
-Patient creatinine marginally improved to 1.7. Patient weight remains stable close to 90kg. hold on further lasix dosing.
2.Left pleural effusion
Right pleural effusion - ruled out
-Chest x-ray questioning moderate right-sided pleural effusion.
-CT chest w/o contrast did not show right effusion.
-IR evaluated and not enough fluid to drain
3. Troponin elevation
-minimal with hypoxia,
-Trop max of 0.1 , trending down
-EKG did not show any ST/T seg changes
4. Mesothelioma
- f/u with [facility] oncology. due for next round chemo today per family
5. JOLYNN on CKDIIIA
-Creatinine elevated to 1.7. Hold further Lasix dose and monitor.
6. Acute VZV infection
-Micropapular rash breaking out on right lower rib cage following dermatomal distribution
-Patient have remote history of shingles infection in past
-Start on valacyclovir. Monitor renal function
Normocytic anemia
xrj-ebjeyjl-sszepfzht diabetes mellitus
COPD
former tobacco use
history of pneumothorax
restrictive lung disease
hyperlipidemia
obesity
DVT PPX - heparin subq
Full code -confirmed with patient
01/26,, Case discussed with bank examiner Family updated bedside
Goal of care discussion held on 01/28, 01/29. Despite treatment with empiric diuretics/antibiotics patient symptom has not improved. CT chest suggestive of significantly advanced mesothelioma causing persistent hypoxia. Hospice care has been
discussed and patient family planning to meet with dry transfer man today.
Total time spent : 52 mins
Anticipated Discharge: Within 24 hours
Subjective/Interval History
-
Date of Service: January 30, 2024
o2 requirement remains elevated to 8L
no significant dyspnea/cough
Objective Data
-
Labs:
Laboratory Results
01/30/24
08:28
Sodium 137
Potassium 4.3
Chloride 99
Carbon Dioxide 34 H
BUN 29 H
Creatinine 1.7 H
Glucose 130 H
Calcium 8.8
Vital Signs:
Vital Signs
Temp Pulse Resp BP Pulse Ox
97.6 F 71 17 88/70 98
01/30/24 11:10 01/30/24 12:00 01/30/24 12:00 01/30/24 12:00 01/30/24 12:00
I&O
01/29/24 01/30/24 01/31/24
05:59 06:59 06:59
Intake Total 480 / 480
Output Total 150 / 150
Balance 330 / 330
Review of Systems
-
Respiratory: Reports No Symptoms
Cardiac: Reports No Symptoms
Abdomen/GI: Reports No Symptoms
Physical Exam
-
General: Obese; Negative Appears in Distress
Respiratory: Rhonchi and Other (oxygen 6L/m); Negative Wheezes
Cardiac: Regular Rhythm and S1/S2; Negative Murmur
GI: Soft, Nontender and Nondistended
Musculoskeletal: Other (resolved swelling b/l LE )
Skin: Rash (Right lower rib, tracks dermatomal distribution, no blisters)
Neuro: Awake, Alert, AO x 3 and No Motor Deficits
Psych: Calm
--- NOTE | 2024-01-30 14:04 | HOSPNOTE ---
"Hospice intro performed. Patient and patient's family all present. Explained hospice services at home, in a facility, and GIP and the various requirements. Explained that hospice is an intermittent service. Clear understanding verbalized. Patient "Janessa"and his family report that they need some time to think about whether they wish to elect for hospice services, and will notify us when they have made a decision."
--- NOTE | 2024-01-30 14:54 | CM ---
CM following re: d/c planning
Chart reviewed
CM addressed consult for hospice and referral placed
after school program assistant was able to meet with the patient and his family at bedside to discuss hospice philosophy and present options
After discussion; the patient and his family are not committing to hospice at this time and will notify nursing staff of their decision should things change
Pt will continue on antibiotic course as directed
Pt discharge anticipated within the next 24 hours
CM following for needs
PLAN; CM following for needs
--- NOTE | 2024-01-30 15:17 | PTCARENOTE ---
Patient and requested venti mask. Respiratory therapist notified and placed patient on 50% VM. 2-view CXR was ordered this morning but scheduled for tomorrow. Reviewed with Dr Corbett who changed to portable Xray for today; xray completed.
[2024-01-30 17:05] LABS: Glucose - Point of Care 145 mg/dl (70-99)
[2024-01-30] MEDS: FLUSH (NSS) 3 FLUSH IV (21:26)
[2024-01-30 21:37] LABS: Glucose - Point of Care 110 mg/dl (70-99)
--- NOTE | 2024-01-30 22:40 | PTCARENOTE ---
received pt on venti mask- he requested midflow for hs- currently on 13 liters midflow to maintain sats- lungs diminished- valencia desats to 80's on exertion and fixates on his numbers- sinus bp wnl afebrile. additional dose of morphine written by phlebotomy services technician
as pt was not due for his prn. plan of care treatments discussed with pt and his family. currently sleeping in bed with no distress
[2024-01-31] VITALS (12 sets, daily range): BP systolic 91–128; BP diastolic 40–81; BMI 30.4
[2024-01-31] MEDS: ROXICODONE 5 MG PO (00:11)
--- NOTE | 2024-01-31 02:48 | PTCARENOTE ---
pt frequently sets of bed alarm at least once an hour forgetful to where he is often to urinate or use bedside commode- able to be reoriented- 10 liters midflow to maintain sats- venti mask for when he stands to urinate keeps him from desatting
[2024-01-31] MEDS: ZOSYN 100 IV ×4 (03:03→21:15)
[2024-01-31] MEDS: FLUSH (NSS) 3 FLUSH IV (03:03)
--- NOTE | 2024-01-31 03:08 | PTCARENOTE ---
Addendum entered by Chirag Thomas RN 01/31/24 04:58:
pt now resting in bed without distress.slightly more forgetful after morphine
Original Note:
episode of sob and air hunger after standing to urinate- maxed on midflow with help of ventimask- pt does not understand why he cant catch his air. crnp ordered morphine see mar
[2024-01-31] MEDS: MORPHINE SULFATE 1 MG IV ×2 (03:12→20:25)
[2024-01-31 04:27] LABS: Blood Urea Nitrogen 26 mg/dl (9-20); Calcium 8.7 mg/dl (8.4-10.2); Carbon Dioxide 31 mmol/L (22-30); Chloride 103 mmol/L (98-107); Estimated Creatinine Clearance 48 ml/min; Glucose 85 mg/dl (70-99); Potassium 4.3 mmol/L (3.5-5.1); Sodium 136 mmol/L (135-145); eGFR 46.35
[2024-01-31 07:28] LABS: Glucose - Point of Care 73 mg/dl (70-99)
[2024-01-31] MEDS: FLOMAX 0.800000000000000044 MG PO (07:37)
[2024-01-31] MEDS: TRICOR 145 MG PO (07:39)
[2024-01-31] MEDS: VIBRAMYCIN 100 MG PO ×2 (07:39→19:49)
[2024-01-31] MEDS: VALTREX 1000 MG PO ×3 (07:39→20:28)
[2024-01-31] MEDS: LIPITOR 80 MG PO (07:39)
[2024-01-31] MEDS: COZAAR 100 MG PO (07:40)
[2024-01-31] MEDS: PROSCAR 5 MG PO (07:40)
[2024-01-31] MEDS: LYRICA 50 MG PO ×2 (07:40→19:49)
[2024-01-31] MEDS: HEPARIN 5000 UNITS SC ×2 (07:40→20:26)
[2024-01-31] MEDS: COREG 12.5 MG PO ×2 (07:40→19:48)
[2024-01-31] MEDS: SPIRIVA RESPIMAT 2.5 MCG 2 PUFF INH (07:55)
[2024-01-31] MEDS: SYMBICORT 80/4.5 MCG INHALER 2 PUFF INH ×2 (07:56→19:56)
--- NOTE | 2024-01-31 09:16 | W.PN.HOSP.TC ---
Today's Communication/Plan
-
Continue current management. Hospice care discussions today.
Assessment / Plan
Assessment / Plan
Physical exam:
General: Acutely ill. Obese; Negative Appears in Distress
Respiratory: Rhonchi and Other (oxygen 15L/m); Negative Wheezes
Cardiac: Regular Rhythm and S1/S2; Negative Murmur
GI: Soft, Nontender and Nondistended
Musculoskeletal: Other (resolved swelling b/l LE )
Skin: Rash (Right lower rib, tracks dermatomal distribution, no blisters)
Neuro: Awake, Alert, AO x 3 and No Motor Deficits
Psych: Calm
A/P:
CT chest
Innumerable scattered bilateral pulmonary nodules majority of which measure up to 1 cm as well as new nodular opacities in the lungs bilaterally, latter of which may be at least in part be fissurally associated. Prominence of the pulmonary
interstitium, new small bilateral pleural effusions, small mediastinal lymph nodes and possible small retrocrural lymph node. In light of the clinical history, findings must be at least deemed suspicious for malignancy including possible
lymphangitic spread of tumor.
Depression of dense consolidation in the anterior right lower lung/right middle lobe.
Tiny prominent size right axillary lymph node.
Coronary artery calcifications.

1. Acute on chronic hypoxic respiratory failure
� � Suspected new HF
-Patient comes in with progressive shortness of breath, slowly worsening over 6 months per patient.
-Titrate down oxygen as able.
-CXR showing moderate CHF. Moderate right pleural effusion.
-ProBNP elevated 1700. in April 13 was 500, suspecting component of new heart failure.� Echocardiogram showed preserved EF.
-CT chest report as above. Discussed with pulmonology as well.
-Patient to finish empiric course of Zosyn and doxycycline 5/5 days. Will stop after today doses.
-Patient creatinine marginally improved to 1.7. Patient weight remains stable close to 90kg. hold on further lasix dosing.
-Discussed with family at bedside today and waiting for hospice meeting later this afternoon. I discussed with hospice nurse as well.
2.Left pleural effusion
Right pleural effusion - ruled out
-Chest x-ray questioning moderate right-sided pleural effusion.
-CT chest w/o contrast did not show right effusion.
-IR evaluated and not enough fluid to drain
3. Troponin elevation
-minimal with hypoxia,
-Trop max of 0.1 , trending down
-EKG did not show any ST/T seg changes
4. Mesothelioma
- f/u with [facility] oncology. due for next round chemo today per family
5. JOLYNN on CKDIIIA
-Creatinine elevated to 1.7. Hold further Lasix dose and monitor.
6. Acute VZV infection
-Micropapular rash breaking out on right lower rib cage following dermatomal distribution
-Patient have remote history of shingles infection in past
-Start on valacyclovir. Monitor renal function
Normocytic anemia
lxy-ckinugb-qogwznklf diabetes mellitus
COPD
former tobacco use
history of pneumothorax
restrictive lung disease
hyperlipidemia
obesity
DVT PPX - heparin subq
Full code -confirmed with patient
01/26,, Case discussed with balloon maker Family updated bedside
Goal of care discussion held on 01/28, 01/29. Despite treatment with empiric diuretics/antibiotics patient symptom has not improved. CT chest suggestive of significantly advanced mesothelioma causing persistent hypoxia. Hospice care has been
discussed and patient family planning to meet with educational institution president today.
Total time spent : 52 mins
Anticipated Discharge: 24 - 48 hours
Subjective/Interval History
-
Date of Service: January 31, 2024
Patient on 15 L of oxygen today. Looks frail overall.
Objective Data
-
Labs:
Laboratory Results
01/31/24
03:22
Sodium 136
Potassium 4.3
Chloride 103
Carbon Dioxide 31 H
BUN 26 H
Creatinine 1.6 H
Glucose 85
Calcium 8.7
Vital Signs:
Vital Signs
Temp Pulse Resp BP Pulse Ox
97.8 F 95 16 128/81 93
01/31/24 07:39 01/31/24 08:00 01/31/24 08:00 01/31/24 08:00 01/31/24 08:00
I&O
01/30/24 01/31/24 02/01/24
06:59 06:59 06:59
Intake Total 820 / 820
Output Total 1425 / 1425
Balance -605 / -605
--- NOTE | 2024-01-31 09:24 | WOUNDNOTE ---
R BUTTOCKS (near coccyx/anal area)
--- NOTE | 2024-01-31 09:25 | WOUNDNOTE ---
[facility] RN note: Patient admitted with HF, hypoxic respiratory failure. Patient lives with . Family visiting.
See H&P for complete history.
PMH: mesothelioma on chemo at [facility], CKD2a, NIDDM, COPD, former smoker, pneumothorax, restrictive lung disease, obesity.
Wound Location and type/assessment: Patient admitted with: R buttocks near coccyx deep dermal stage 2 pressure injury with yellow fibrin cover and flecks of pink. L medial ankle with couple small scabbed dry abrasions. R back/flank/chest Zoster
rash. Patient on Valtrex.
Appetite: good.
Pressure redistribution devices in place: Centrella Max air bed. Air chair cushion. Patient can turn self in bed.
Plan: Silicone border foam changed R buttocks. Heels off bed with air chair cushion. Instructed patient pressure injury prevention measures. Instructed patient to take air chair cushion when discharged.
Will confirm orders with hospitalist and updated NOMAN Arriaga who was in during visit to assist.
Care plan to be updated and will follow as needed.
Note to case management requested for discharge: VN if patient goes home.
Recommend follow up at Wound care center if needed.
--- NOTE | 2024-01-31 09:25 | WOUNDNOTE ---
R BUTTOCKS (near coccyx/anal area)
--- NOTE | 2024-01-31 09:27 | WOUNDNOTE ---
[facility] RN note: Patient admitted with HF, hypoxic respiratory failure. Patient lives with . Family visiting. Hospice meeting planned as per physician note yesterday.
See H&P for complete history.
PMH: mesothelioma on chemo at [facility], CKD2a, NIDDM, COPD, former smoker, pneumothorax, restrictive lung disease, obesity.
Wound Location and type/assessment: Patient admitted with: R buttocks near coccyx deep dermal stage 2 pressure injury with yellow fibrin cover and flecks of pink. L medial ankle with couple small scabbed dry abrasions. R back/flank/chest Zoster
rash. Patient on Valtrex.
Appetite: good.
Pressure redistribution devices in place: Centrella Max air bed. Air chair cushion. Patient can turn self in bed.
Plan: Silicone border foam changed R buttocks. Heels off bed with air chair cushion. Instructed patient pressure injury prevention measures. Instructed patient to take air chair cushion when discharged.
Will confirm orders with hospitalist and updated NOMAN Arriaga who was in during visit to assist.
Care plan to be updated and will follow as needed.
Note to case management requested for discharge: VN if patient goes home.
--- NOTE | 2024-01-31 09:43 | CM ---
Patient with Dx Acute on chronic hypoxic respiratory failure, Suspected new HF, Left pleural effusion, Acute VZV infection. Contact precautions. O2 10L midflow & ventimask. Seen by wound care nurse. Receiving IV Zosyn, IV MS.
Spoke with patient's Arianne; she would like patient to go home to daughter Echo's house in [place] if possible, with Hospice, and hospital bed. Arianne says daughter's house more conducive to having hospice nurse visits. Discussed that
patient may need 24 hr caregiver - Arianne already contacted [facility] Caregiver agency and wants to call a few more agencies. Agreed to email her a caregiver list to [email or web address]-> sent. Arianne says she feels her is sometimes
forgetful and at times confused/not responding when she has been with him here at .
Message to Lory Brooks, Hospice and Dr Jones, notifying them 's decision accepting hospice, and that she is hoping to speak with hospice nurse today.
Plan follow up after seen by Hospice.
--- NOTE | 2024-01-31 10:05 | HOSPNOTE ---
Meeting spouse at 1:30 today to discuss hospice. More information to come.
[2024-01-31 12:43] LABS: Glucose - Point of Care 112 mg/dl (70-99)
--- NOTE | 2024-01-31 14:46 | HOSPNOTE ---
Met with family and the decision to bring patient home on hospice services on Wednesday02/02/24. The family is in agreement with hospice and the philosophy. Equipment was ordered for delivery tomorrow. Transport is scheduled for 10am on Wednesday.
Case management and attending aware.
[2024-01-31 16:16] LABS: Glucose - Point of Care 81 mg/dl (70-99)
[2024-01-31] MEDS: ROXICODONE 10 MG PO ×2 (17:27→21:18)
--- NOTE | 2024-01-31 20:33 | PTCARENOTE ---
episode of air hunger with desat during urination- food assembler commissary kitchen ordered iv morphine and RT gave resp tx - pt currently more comfortable on 50% ventimask
[2024-01-31 21:45] LABS: Glucose - Point of Care 136 mg/dl (70-99)
[2024-02-01] VITALS (11 sets, daily range): BP systolic 101–137; BP diastolic 45–92; BMI 29.9
--- NOTE | 2024-02-01 00:53 | W.PN.UPDATE ---
Update Note
Progress Note Update
Nursing reporting patient with increased episodes of respiratory distress. Review of chart and appears patient will be discharged home with [facility] tomorrow, transport schedule for 999. Order placed for Morphine
concentrate 10mg PO q4PRN pain/dyspnea.
[2024-02-01] MEDS: MORPHINE ORAL SOLUTION 10 MG PO ×2 (01:08→23:45)
[2024-02-01] MEDS: ROXICODONE 10 MG PO ×2 (03:09→13:33)
[2024-02-01] MEDS: ZOSYN 100 IV (03:09)
[2024-02-01] MEDS: FLUSH (NSS) 5 FLUSH IV (03:10)
[2024-02-01 05:35] LABS: Blood Urea Nitrogen 27 mg/dl (9-20); Calcium 8.7 mg/dl (8.4-10.2); Carbon Dioxide 34 mmol/L (22-30); Chloride 99 mmol/L (98-107); Estimated Creatinine Clearance 54 ml/min; Glucose 88 mg/dl (70-99); Potassium 4.1 mmol/L (3.5-5.1); Sodium 136 mmol/L (135-145); eGFR 54.41
[2024-02-01] MEDS: SPIRIVA RESPIMAT 2.5 MCG 2 PUFF INH (07:27)
[2024-02-01] MEDS: SYMBICORT 80/4.5 MCG INHALER 2 PUFF INH ×2 (07:27→20:07)
[2024-02-01 08:09] LABS: Glucose - Point of Care 78 mg/dl (70-99)
--- NOTE | 2024-02-01 08:21 | W.PN.HOSP.TC ---
Today's Communication/Plan
-
Continue current management. Discharge planning in progress.
Assessment / Plan
Assessment / Plan
Physical exam:
General: Acutely ill. Obese; Negative Appears in Distress
Respiratory: Rhonchi and Other (oxygen 15L/m); Negative Wheezes
Cardiac: Regular Rhythm and S1/S2; Negative Murmur
GI: Soft, Nontender and Nondistended
Musculoskeletal: Other (resolved swelling b/l LE )
Skin: Rash (Right lower rib, tracks dermatomal distribution, no blisters)
Neuro: Awake, Alert, AO x 3 and No Motor Deficits
Psych: Calm
A/P:
CT chest
Innumerable scattered bilateral pulmonary nodules majority of which measure up to 1 cm as well as new nodular opacities in the lungs bilaterally, latter of which may be at least in part be fissurally associated. Prominence of the pulmonary
interstitium, new small bilateral pleural effusions, small mediastinal lymph nodes and possible small retrocrural lymph node. In light of the clinical history, findings must be at least deemed suspicious for malignancy including possible
lymphangitic spread of tumor.
Depression of dense consolidation in the anterior right lower lung/right middle lobe.
Tiny prominent size right axillary lymph node.
Coronary artery calcifications.

1. Acute on chronic hypoxic respiratory failure
� � Suspected new HF
-Patient comes in with progressive shortness of breath, slowly worsening over 6 months per patient.
-Titrate down oxygen as able.
-CXR showing moderate CHF. Moderate right pleural effusion.
-ProBNP elevated 1700. in April 13 was 500, suspecting component of new heart failure.� Echocardiogram showed preserved EF.
-CT chest report as above. Discussed with pulmonology as well.
-Patient to finish empiric course of Zosyn and doxycycline 5/5 days. Will stop today.
-Patient creatinine marginally improved to 1.7. IV Lasix 40 mg x 1 today.
-Discussed with family at bedside today on 01/03. Plan for home hospice tomorrow
2.Left pleural effusion
Right pleural effusion - ruled out
-Chest x-ray questioning moderate right-sided pleural effusion.
-CT chest w/o contrast did not show right effusion.
-IR evaluated and not enough fluid to drain
3. Troponin elevation
-minimal with hypoxia,
-Trop max of 0.1 , trending down
-EKG did not show any ST/T seg changes
4. Mesothelioma
- f/u with [facility] oncology. due for next round chemo today per family
5. JOLYNN on CKDIIIA
-Creatinine elevated to 1.7. Hold further Lasix dose and monitor.
6. Acute VZV infection
-Micropapular rash breaking out on right lower rib cage following dermatomal distribution
-Patient have remote history of shingles infection in past
-Start on valacyclovir. Monitor renal function
Normocytic anemia
htb-psvvamj-aocvsekcn diabetes mellitus
COPD
former tobacco use
history of pneumothorax
restrictive lung disease
hyperlipidemia
obesity
DVT PPX - heparin subq
Full code -confirmed with patient
Anticipated Discharge: Within 24 hours
Subjective/Interval History
-
Date of Service: February 01, 2024
Patient with some shortness of breath and on supplemental oxygen at 10 L
Objective Data
-
Labs:
Laboratory Results
02/01/24
04:38
Sodium 136
Potassium 4.1
Chloride 99
Carbon Dioxide 34 H
BUN 27 H
Creatinine 1.4 H
Glucose 88
Calcium 8.7
Vital Signs:
Vital Signs
Temp Pulse Resp BP Pulse Ox
97.7 F 70 12 101/61 98
02/01/24 04:09 02/01/24 07:30 02/01/24 07:30 02/01/24 04:00 02/01/24 07:30
I&O
01/31/24 02/01/24 02/02/24
06:59 06:59 06:59
Intake Total 820 / 820 720 / 720
Output Total 1425 / 1425 950 / 950
Balance -605 / -605 -230 / -230
[2024-02-01] MEDS: HEPARIN 5000 UNITS SC ×2 (08:45→20:15)
[2024-02-01] MEDS: COZAAR 100 MG PO (08:45)
[2024-02-01] MEDS: VALTREX 1000 MG PO ×3 (08:46→20:15)
[2024-02-01] MEDS: PROSCAR 5 MG PO (08:47)
[2024-02-01] MEDS: COREG 12.5 MG PO ×2 (08:47→20:15)
[2024-02-01] MEDS: TRICOR 145 MG PO (08:48)
[2024-02-01] MEDS: FLOMAX 0.800000000000000044 MG PO (08:48)
[2024-02-01] MEDS: LIPITOR 80 MG PO (08:49)
[2024-02-01] MEDS: LYRICA 50 MG PO ×2 (08:49→20:15)
[2024-02-01] MEDS: VIBRAMYCIN PO (09:03)
[2024-02-01] MEDS: LASIX 40 MG IV (10:18)
--- NOTE | 2024-02-01 10:35 | PTCARENOTE ---
Pt with urinary frequency. Noted to have difficulty recovering from SOB after using the urinal. Condom cath applied for pt's comfort and safety.
[2024-02-01 13:05] LABS: Glucose - Point of Care 103 mg/dl (70-99)
--- NOTE | 2024-02-01 15:23 | CM ---
employee benefits manager reviewed patient's chart and per previous immigration case worker and hospice notes patient has been set up for pickling tank operator tomorrow at 10am, by ambulance, per [facility] all equipment in home for patient's arrival tomorrow.
Plan; Home by ambulance, need OOH DNR.
[2024-02-01 17:23] LABS: Glucose - Point of Care 100 mg/dl (70-99)
[2024-02-01 21:50] LABS: Glucose - Point of Care 110 mg/dl (70-99)
[2024-02-02] VITALS: BP 110/76
[2024-02-02] MEDS: MORPHINE SULFATE 1 MG IV (01:19)
[2024-02-02 02:00] VITALS: BP 118/74
[2024-02-02 04:33] VITALS: BP 115/73
[2024-02-02 04:37] VITALS: BMI 29.7
[2024-02-02 05:39] LABS: Blood Urea Nitrogen 28 mg/dl (9-20); Calcium 8.5 mg/dl (8.4-10.2); Carbon Dioxide 33 mmol/L (22-30); Chloride 100 mmol/L (98-107); Estimated Creatinine Clearance 48 ml/min; Glucose 80 mg/dl (70-99); Sodium 135 mmol/L (135-145); eGFR 54.41
[2024-02-02 06:03] VITALS: BP 96/48
[2024-02-02] MEDS: SYMBICORT 80/4.5 MCG INHALER 2 PUFF INH (07:25)
[2024-02-02] MEDS: SPIRIVA RESPIMAT 2.5 MCG 2 PUFF INH (07:25)
[2024-02-02 07:52] LABS: Glucose - Point of Care 71 mg/dl (70-99)
[2024-02-02 08:00] VITALS: BP 136/71
[2024-02-02] MEDS: TRICOR 145 MG PO (08:03)
[2024-02-02] MEDS: FLOMAX 0.800000000000000044 MG PO (08:03)
[2024-02-02] MEDS: LIPITOR 80 MG PO (08:03)
[2024-02-02] MEDS: VALTREX 1000 MG PO (08:04)
[2024-02-02] MEDS: LYRICA 50 MG PO (08:04)
[2024-02-02] MEDS: PROSCAR 5 MG PO (08:04)
[2024-02-02] MEDS: COREG 12.5 MG PO (08:05)
[2024-02-02] MEDS: COZAAR 100 MG PO (08:05)
[2024-02-02] MEDS: HEPARIN 5000 UNITS SC (08:06)
--- NOTE | 2024-02-02 08:59 | PN.CDI ---
CDI
- -
CDI:
Physician Documentation Request
Admit Date: 01/26/24 15:36
Dear Doctor Robert,
Patient admitted with new heart failure. Troponin elevation noted.
Laboratory Tests
01/26/24 01/26/24 01/27/24
13:07 17:42 00:44
Troponin I 0.082 H* 0.107 H* D 0.081 H*
Could you please provide a diagnosis that supports the above lab abnormalities and additional evaluation/monitoring:
Non Ischemic myocardial injury
Type II [place] demand ischemic
Other
Use of terms such as suspected, likely, concern for, or probable (associated with a specific diagnosis that is being evaluated, monitored, or treated as if it exists) are acceptable and can be coded in the inpatient setting, when documented at the
time of discharge.
Thank you,
Fabi Harkins RN, BSN
CDI Specialist
tiger text
Please use your independent medical judgment in providing your response.
--- NOTE | 2024-02-02 09:03 | W.PN.HOSP.TC ---
Addendum entered and electronically signed by Panfilo Jones MD 02/02/24 13:54:
Elevated troponin due to non-ischemic myocardial injury
Original Note:
Today's Communication/Plan
-
Discharge planning today
Assessment / Plan
Assessment / Plan
Physical exam:
General: Acutely ill. Obese; Negative Appears in Distress
Respiratory: Rhonchi and Other (oxygen 15L/m); Negative Wheezes
Cardiac: Regular Rhythm and S1/S2; Negative Murmur
GI: Soft, Nontender and Nondistended
Musculoskeletal: Other (resolved swelling b/l LE )
Skin: Rash (Right lower rib, tracks dermatomal distribution, no blisters)
Neuro: Awake, Alert, AO x 3 and No Motor Deficits
Psych: Calm
A/P:
CT chest
Innumerable scattered bilateral pulmonary nodules majority of which measure up to 1 cm as well as new nodular opacities in the lungs bilaterally, latter of which may be at least in part be fissurally associated. Prominence of the pulmonary
interstitium, new small bilateral pleural effusions, small mediastinal lymph nodes and possible small retrocrural lymph node. In light of the clinical history, findings must be at least deemed suspicious for malignancy including possible
lymphangitic spread of tumor.
Depression of dense consolidation in the anterior right lower lung/right middle lobe.
Tiny prominent size right axillary lymph node.
Coronary artery calcifications.

1. Acute on chronic hypoxic respiratory failure
� � Suspected new HF
-Patient comes in with progressive shortness of breath, slowly worsening over 6 months per patient.
-Titrate down oxygen as able.
-CXR showing moderate CHF. Moderate right pleural effusion.
-ProBNP elevated 1700. in April 13 was 500, suspecting component of new heart failure.� Echocardiogram showed preserved EF.
-CT chest report as above. Discussed with pulmonology as well.
-Patient to finish empiric course of Zosyn and doxycycline 5/5 days-->Stopped.
-Patient creatinine marginally improved to 1.7. IV Lasix 40 mg x 1 yesterday.
-Discussed with family at bedside today on 02/01. Plan for home hospice today
2.Left pleural effusion
Right pleural effusion - ruled out
-Chest x-ray questioning moderate right-sided pleural effusion.
-CT chest w/o contrast did not show right effusion.
-IR evaluated and not enough fluid to drain
3. Troponin elevation
-minimal with hypoxia,
-Trop max of 0.1 , trending down
-EKG did not show any ST/T seg changes
4. Mesothelioma
- f/u with [facility] oncology. due for next round chemo today per family
5. JOLYNN on CKDIIIA
-Creatinine elevated to 1.7. Hold further Lasix dose and monitor.
6. Acute VZV infection
-Micropapular rash breaking out on right lower rib cage following dermatomal distribution
-Patient have remote history of shingles infection in past
-Start on valacyclovir. Monitor renal function
Normocytic anemia
zjm-xkxggue-cvbdlqchx diabetes mellitus
COPD
former tobacco use
history of pneumothorax
restrictive lung disease
hyperlipidemia
obesity
DVT PPX - heparin subq
Full code -confirmed with patient
Anticipated Discharge: Today
Subjective/Interval History
-
Date of Service: February 02, 2024
Patient comfortable. On supplemental oxygen
Objective Data
-
Labs:
Laboratory Results
02/02/24
04:30
Sodium 135
Potassium 4.0
Chloride 100
Carbon Dioxide 33 H
BUN 28 H
Creatinine 1.4 H
Glucose 80
Calcium 8.5
Vital Signs:
Vital Signs
Temp Pulse Resp BP Pulse Ox
98.2 F 75 16 136/71 91
02/02/24 03:00 02/02/24 08:05 02/02/24 08:00 02/02/24 08:05 02/02/24 08:05
I&O
02/01/24 02/02/24 02/03/24
06:59 06:59 06:59
Intake Total 720 / 720 480 / 480
Output Total 950 / 950 900 / 900
Balance -230 / -230 -420 / -420
--- NOTE | 2024-02-02 09:08 | W.DCSUMMARY ---
Discharge Summary
Discharge Data
Date of Admission: 01/26/24
Date of Discharge: 02/02/24
-
Pending Results: No
Hospital Course
Patient is 68 years old male with history of mesothelioma undergoing chemotherapy, CKD, COPD, admitted to the hospital with shortness of breath. Pulmonary were consulted. Patient was diuresed due to heart failure and he was also given antibiotic
empirically. Patient echocardiogram showed EF 55 to 60% and pulmonary hypertension is a new finding compared to prior echocardiogram. He had ultrasound of bilateral effusion to see if he was amenable for thoracentesis but they were too small so no
thoracentesis necessary. CT scan of the chest with multiple abnormalities. After discussion with pulmonary and primary service patient decided on home hospice. Patient remains on 10 L of oxygen. Patient will be discharged to home hospice today.
Discharge duration: 36 minutes
Discharge Plan
-
Patient Disposition: Home with Hospice
Discharge Diagnosis/Procedures: Acute on chronic hypoxic respiratory failure. Mesothelioma. Pneumonia. Varicella-zoster infection. Left pleural effusion. Elevated troponin due to non-ischemic myocardial injury secondary to hypoxia. Anemia.
Diet: Regular
Activity Restrictions/Additional Instructions:
Wound Care Instructions
R buttocks ulcer-clean with saline or soap and water, silicone border foam, change daily and as needed for loosened dressing. If foam ineffective, apply honey gel, gauze pad secured with minimal silicone tape daily instead.
Pressure redistributing chair cushion.
Elevate heels off bed with pillow or air chair cushion.
Follow up at wound care center call for an appointment.
Instructions: *PCP/Other Packaging Clerk Heart Failure Instructions
Referrals:
Addie Barker MD [Active] - in one to two weeks (or [facility])
Omar Banks MD [Family Provider] - in less than 1 week
Prescriptions:
New
valacyclovir 500 mg Tablet
1,000 mg PO TID 3 Days Qty: 18 0RF
morphine 10 mg/5 mL Solution
10 mg PO Q4HPRN PRN (Reason: pain/SOB) Qty: 100 0RF
Continued
atorvastatin 80 MG tablet
80 mg PO DAILY
Hold Instructions: Resume on 04/14/23. Do not resume until directed to do so by Dr. Banks
finasteride 5 MG tablet
5 mg PO DAILY
fenofibric acid (choline) 135 MG capsule,delayed release(DR/EC)
135 mg PO DAILY
dapagliflozin propanediol [Farxiga] 10 MG tablet
10 mg PO DAILY
tamsulosin 0.4 MG capsule
0.8 mg PO DAILY
methylphenidate HCl 10 mg tablet
15 mg PO BIDPRN PRN (Reason: adhd)
albuterol sulfate 90 mcg/actuation HFA aerosol inhaler
2 puff INHALATION R Q6HPRN PRN (Reason: sob)
carvedilol [Coreg] 12.5 mg Tablet
12.5 mg PO BID
losartan 100 mg Tablet
100 mg PO DAILY
Excedrin Extra Strength 250-250-65 mg Tablet
1 tab PO DAILYPRN PRN (Reason: headaches)
pregabalin [Lyrica] 50 mg Capsule
50 mg PO BID
Trelegy Ellipta 100-62.5-25 mcg Blister With Device
1 inh INHALATION R DAILY
Discontinued
naproxen sodium [Aleve] 220 mg Tablet
220 mg PO BIDPRN PRN (Reason: mild pain)
oxycodone 5 mg Tablet
5 mg PO Q4H PRN (Reason: pain)
oxycodone 10 mg Tablet Extended Release 12 Hr
10 mg PO 2XD
Discharge Orders:
Discharge Patient (As Directed); Ordered 02/02/24
Ordered By: Panfilo Jones
Discharge Date and Time
Discharge Date/Time: 02/02/24 10:28
--- NOTE | 2024-02-02 09:21 | CM ---
Home today with [facility], 10am tile picker, IMM completed and Medical Necessity form placed on chart.
Plan; To daughter and son in law's home, son in law in room.
[2024-02-02] MEDS: MORPHINE ORAL SOLUTION 10 MG PO (10:06)
--- NOTE | 2024-02-02 10:23 | PTCARENOTE ---
Pt for d/c home on hospice. Son at bedside. D/c instructions reviewed with pt and son. Medicated for dyspnea prior to d/c. Belongings collected from room. D/c home via Acute Care.
== END 2024-02-02 10:28 | disposition hospice, home (50) | DRG 291 ==
LOC: IMU 15:36
PROVIDERS: Emergency Medicine; Physician Assistant; ADMITTING PHYSICIAN Hospitalist; ATTENDING PHYSICIAN Hospitalist; CONSULT PHYSICIAN Internal Medicine Critical Care Medicine; EMERGENCY PHYSICIAN Emergency Medicine; FAMILY PHYSICIAN Family Medicine
DX: I50.31 Acute diastolic (congestive) heart failure (principal); J18.9 Pneumonia, unspecified organism; J96.21 Acute and chronic respiratory failure with hypoxia; N17.9 Acute kidney failure, unspecified; B01.9 Varicella without complication; I5A Non-ischemic myocardial injury (non-traumatic); I27.20 Pulmonary hypertension, unspecified; C45.9 Mesothelioma, unspecified; N18.31 Chronic kidney disease, stage 3a; D64.9 Anemia, unspecified
CPT/HCPCS: 36600; 71045; 71250; 76604; 80048; 80053; 82805; 82962; 83036; 83880; 84484; 85025; 85027; 85610; 85730; 87070; 87449; 87502; 87811; 87899; 93005; 93306; 94640; 96374; 99291; Q9950